=== PATIENT | female | born 1940 | race Caucasian/White ===

== ENCOUNTER 2017-01-04 15:04 | Inpatient (IN) ==
[2017-01-04] MEDS ORDERED: 0.9 % Sodium Chloride 1,000 ML IVC ONE (15:38)
--- NOTE | 2017-01-04 15:43 | Emergency Department Note ---
Disposition Clinical Impression: Hyponatremia, COPD exacerbation, At risk for fall due to comorbid condition Disposition: Admitted As Inpatient Condition: Fair Time of Disposition: 19:14 General Adult HPI - General Chief complaint: ED Fall Stated complaint: frequent fall, back pain Time Seen by Provider: 01/04/17 15:21 Source: patient, family Limitations: no limitations Nursing Notes Reviewed: Yes Vital Signs Reviewed: Yes - History of Present Illness HPI Narrative: Patient is a 68-year-old female recent history of lung cancer diagnosis unknown type. Biopsies taken a few weeks ago. Patient also has a history of COPD and hypertension. Pt not on anticoagulants. Patient's daughter has been concerned for recent falls on repeated occasions, worsening confusion times the past month. Patient complains of some breath increased sputum production and cough over the past 2 weeks. Patient is treated for bronchitis 2 weeks prior to symptoms improved but then worsened. Patient also compared complains of intermittent dysuria and burning with urination and hematuria. Pain Scale: 8 - Related Data Home Medications Medication Instructions Recorded Confirmed Albuterol Sulfate [Albuterol 2 puff IH Q4-6H PRN 06/20/15 12/31/16 Inhaler] Losartan [Cozaar] 25 mg PO DAILY 06/20/15 12/31/16 Ipratropium/Albuterol Neb [Duoneb] 3 ml IH Q6HR PRN 12/23/16 12/31/16 Allergies Allergy/AdvReac Type Severity Reaction Status Date / Time Amoxicillin Allergy Difficulty Verified 12/23/16 08:32 Swallowing All systems ED: reviewed and negative except as stated. Constitutional: Reports: weakness. Denies: fever, chills Eyes: Denies: vision change ENT ED: Reports: congestion Cardiovascular: Denies: chest pain, palpitations, dyspnea on exertion, orthopnea Respiratory: Reports: cough, dyspnea. Denies: wheezes Gastrointestinal: Denies: abdominal pain, nausea, vomiting, diarrhea Genitourinary: Reports: urgency, dysuria, hematuria Musculoskeletal: Reports: back pain. Denies: neck pain Integumentary: Reports: lesions. Denies: rash Neurological: Reports: confusion, other (Unsteady gait). Denies: headache Psychiatric: Denies: anxiety Hematological/Lymphatic: Denies: easy bleeding, lymphadenopathy Past Medical History - Past Medical History Attestation: Yes The following information was validated with the patient. Source: patient, nursing notes reviewed (Contrary to complaint of back pain and nursing's notes. After a thorough investigation patient's head neck thoracic lumbar and sacrum patient has no reproducible tenderness to palpation patient does not complain of any back pain symptoms at this time) Medical history: Reports: cancer, COPD, hypertension Surgical history: Reports: cataract Psychiatric history: Reports: no psych history [employer] history: Reports: non-contributory - Social History Smoking Status: Current every day smoker Smokeless Tobacco Status: No Alcohol use: Reports: none Drug use: Reports: none Physical Exam Vital Signs Temperature 99.5 F 01/04/17 15:12 Pulse Rate 89 01/04/17 15:12 Respiratory Rate 18 01/04/17 15:12 Blood Pressure 192/60 01/04/17 15:12 O2 Sat by Pulse Oximetry 90 01/04/17 15:12 Temperature 99.5 F 01/04/17 15:17 Pulse Rate 88 01/04/17 16:14 Respiratory Rate 16 01/04/17 16:14 Blood Pressure 163/80 01/04/17 16:14 O2 Sat by Pulse Oximetry 99 01/04/17 16:14 Oxygen Delivery Oxygen Delivery Nasal Cannula -General Appearance: Patient is a 68-year-old female who is alert and oriented 3 GCS 15. Patient can sit up in the bed and in no acute distress. Patient has a periodic wet sounding cough -Neurological exam: Cranial nerves II-12 intact, no focal deficits observed, strength equal 5/5 bilaterally in upper and lower extremities, cerebellar motion test negative. Negative loss of sensation, relfexex 2/4 bilat - Head Head exam: atraumatic, normocephalic, normal inspection, no areas of tenderness to palpation anywhere patient's scalp. - Eye Eye exam: Present: normal appearance, PERRL, EOMI, negative for scleral icterus negative for conjunctival pallor - ENT ENT exam: normal exam, normal oropharynx, mucous membranes moist - Neck Neck exam: Present: normal inspection, full ROM, trachea midline, negative JVD - Chest Chest inspection: Present: Patient has bilateral equal rise and fall of chest wall. Non-tender to palpation. - Respiratory Respiratory exam: Bilateral rales Cardiovascular Cardiovascular exam: Present: regular rate, normal rhythm, normal heart sounds, without murmurs rubs or gallops. - Abdominal Exam Abdominal exam: Present: soft, nondistended, Non-Tender light and deep palpation in all quadrants. Bowel sounds normoactive throughout all 4 quadrants. Negative for hyper or hyperresonance. - Extremities Exam Extremities exam: Present: normal inspection, full ROM - Back Exam Back exam: Present: normal inspection, full ROM. Absent: tenderness, CVA tenderness (R), CVA tenderness (L) - Psychiatric Psychiatric exam: Present: normal affect, normal mood - Skin Skin exam: Present: warm, dry, intact, normal color - General Limitations: no limitations General appearance: alert, in no apparent distress Course - Reevaluation(s) Reevaluation #1: Consent patient's worsening cough, confusion and frequent falls secondary to instability on her feet patient symptoms are concerning for PE, sepsis secondary to pneumonia, UTI Time: 15:41 Reevaluation #2: elevated d-dimer, CTA chest ordered Time: 16:05 - Consultations Consultation #1: Dr. Frank the hospitalist has accepted pt for admission 1911hrs. Time: 19:12 Vital Signs Temperature 99.5 F 01/04/17 15:12 Pulse Rate 89 01/04/17 15:12 Respiratory Rate 18 01/04/17 15:12 Blood Pressure 192/60 01/04/17 15:12 O2 Sat by Pulse Oximetry 90 01/04/17 15:12 Temperature 97.4 F L 01/05/17 00:26 Pulse Rate 77 01/05/17 00:26 Respiratory Rate 16 01/05/17 00:26 Blood Pressure 148/66 01/05/17 00:26 O2 Sat by Pulse Oximetry 96 01/05/17 00:26 Oxygen Delivery Oxygen Delivery Nasal Cannula Medical Decision Making - Lab Data Lab results reviewed: Yes I reviewed the patient's lab results. Lab results narrative: Short CBC 01/04/17 Range/Units 16:05 WBC 11.9 H (4.3-11.1) K/mcL Hgb 11.5 (11.5-15.4) g/dL Hct 33.8 L (35.3-44.9) % Plt Count 306 (140-400) K/mcL Neutrophils # 10.2 H (1.6-8.9) K/mcL BMP 01/04/17 Range/Units 16:05 Sodium 133 L (136-145) mEq/L Potassium 3.5 (3.5-4.5) mEq/L Chloride 94 L (98-109) mEq/L Carbon Dioxide 26 (19-29) mEq/L BUN 10 (7-20) mg/dL Creatinine 0.67 (0.57-1.11) mg/dL Glucose 112 H (70-99) mg/dL Calcium 9.3 (8.6-10.8) mg/dL Cardiac Enzymes 01/04/17 Range/Units 16:05 Troponin I 0.01 (0-0.03) ng/mL Urine 01/04/17 Range/Units 18:00 Urine Color Yellow (Yellow) Urine Clarity Clear (Clear) Urine pH 6.5 (5.0-8.0) pH Units Ur Specific [place] 1.025 (1.010-1.025) Urine Protein Negative (Neg-Trace) mg/dL Urine Glucose (UA) Normal (Normal) mg/dL Result diagrams: 01/04/17 16:05 01/04/17 16:05 Lab Results 01/04/17 01/04/17 01/04/17 Range/Units 16:05 16:05 16:05 WBC 11.9 H (4.3-11.1) K/mcL RBC 4.06 (3.82-4.97) M/mcL Hgb 11.5 (11.5-15.4) g/dL Hct 33.8 L (35.3-44.9) % MCV 83.3 (83.0-100.0) fL MCH 28.3 (28.0-33.3) pg MCHC 34.0 (31.6-35.5) g/dL RDW 12.8 (11.5-14.5) % Plt Count 306 (140-400) K/mcL MPV 9.7 (9.4-12.4) fL Immature Gran % 0.6 (0-4) % Seg Neutrophils % 85.9 % Lymphocytes % 7.5 % Monocytes % 4.9 % Eosinophils % 0.8 % Basophils % 0.3 % Neutrophils # 10.2 H (1.6-8.9) K/mcL Lymphocytes # 0.9 (0.6-4.6) K/mcL Monocytes # 0.6 (0.0-1.3) K/mcL Eosinophils # 0.1 (0.0-0.6) K/mcL Basophils # 0.0 (0.0-0.2) K/mcL D-Dimer (0-500) ng/mLFEU Sodium 133 L (136-145) mEq/L Potassium 3.5 (3.5-4.5) mEq/L Chloride 94 L (98-109) mEq/L Carbon Dioxide 26 (19-29) mEq/L BUN 10 (7-20) mg/dL Creatinine 0.67 (0.57-1.11) mg/dL Est GFR ( Amer) > 60 (> 60) Est GFR (Non-Af Amer) > 60 (> 60) BUN/Creatinine Ratio 15 (6-26) Glucose 112 H (70-99) mg/dL POC Glucose (58-89) Calculated Osmolality 276 L (280-300) Lactic Acid 0.9 (0.5-2.2) mmol/L Calcium 9.3 (8.6-10.8) mg/dL Troponin I (0-0.03) ng/mL B-Natriuretic Peptide (0-100) pg/mL Urine Color (Yellow) Urine Clarity (Clear) Urine pH (5.0-8.0) pH Units Ur Specific [place] (1.010-1.025) Urine Protein (Neg-Trace) mg/dL Urine Glucose (UA) (Normal) mg/dL Urine Ketones (Negative) mg/dL Urine Blood (Negative) Urine Nitrite (Negative) Urine Bilirubin (Negative) Urine Urobilinogen (Normal) mg/dL Ur Leukocyte Esterase (Negative) Urine Microscopic RBC (0-3) per hpf Urine Microscopic WBC (0-3) per hpf Ur Squamous Epith Cells (None-Few) per lpf Urine Bacteria (None-Few) per hpf Hyaline Casts (None-Few) per lpf Ur Culture Indicated? (NO) 01/04/17 01/04/17 01/04/17 Range/Units 16:05 16:05 16:05 WBC (4.3-11.1) K/mcL RBC (3.82-4.97) M/mcL Hgb (11.5-15.4) g/dL Hct (35.3-44.9) % MCV (83.0-100.0) fL MCH (28.0-33.3) pg MCHC (31.6-35.5) g/dL RDW (11.5-14.5) % Plt Count (140-400) K/mcL MPV (9.4-12.4) fL Immature Gran % (0-4) % Seg Neutrophils % % Lymphocytes % % Monocytes % % Eosinophils % % Basophils % % Neutrophils # (1.6-8.9) K/mcL Lymphocytes # (0.6-4.6) K/mcL Monocytes # (0.0-1.3) K/mcL Eosinophils # (0.0-0.6) K/mcL Basophils # (0.0-0.2) K/mcL D-Dimer 1503 H (0-500) ng/mLFEU Sodium (136-145) mEq/L Potassium (3.5-4.5) mEq/L Chloride (98-109) mEq/L Carbon Dioxide (19-29) mEq/L BUN (7-20) mg/dL Creatinine (0.57-1.11) mg/dL Est GFR ( Amer) (> 60) Est GFR (Non-Af Amer) (> 60) BUN/Creatinine Ratio (6-26) Glucose (70-99) mg/dL POC Glucose (58-89) Calculated Osmolality (280-300) Lactic Acid (0.5-2.2) mmol/L Calcium (8.6-10.8) mg/dL Troponin I 0.01 (0-0.03) ng/mL B-Natriuretic Peptide 51 (0-100) pg/mL Urine Color (Yellow) Urine Clarity (Clear) Urine pH (5.0-8.0) pH Units Ur Specific [place] (1.010-1.025) Urine Protein (Neg-Trace) mg/dL Urine Glucose (UA) (Normal) mg/dL Urine Ketones (Negative) mg/dL Urine Blood (Negative) Urine Nitrite (Negative) Urine Bilirubin (Negative) Urine Urobilinogen (Normal) mg/dL Ur Leukocyte Esterase (Negative) Urine Microscopic RBC (0-3) per hpf Urine Microscopic WBC (0-3) per hpf Ur Squamous Epith Cells (None-Few) per lpf Urine Bacteria (None-Few) per hpf Hyaline Casts (None-Few) per lpf Ur Culture Indicated? (NO) 01/04/17 01/04/17 Range/Units 16:17 18:00 WBC (4.3-11.1) K/mcL RBC (3.82-4.97) M/mcL Hgb (11.5-15.4) g/dL Hct (35.3-44.9) % MCV (83.0-100.0) fL MCH (28.0-33.3) pg MCHC (31.6-35.5) g/dL RDW (11.5-14.5) % Plt Count (140-400) K/mcL MPV (9.4-12.4) fL Immature Gran % (0-4) % Seg Neutrophils % % Lymphocytes % % Monocytes % % Eosinophils % % Basophils % % Neutrophils # (1.6-8.9) K/mcL Lymphocytes # (0.6-4.6) K/mcL Monocytes # (0.0-1.3) K/mcL Eosinophils # (0.0-0.6) K/mcL Basophils # (0.0-0.2) K/mcL D-Dimer (0-500) ng/mLFEU Sodium (136-145) mEq/L Potassium (3.5-4.5) mEq/L Chloride (98-109) mEq/L Carbon Dioxide (19-29) mEq/L BUN (7-20) mg/dL Creatinine (0.57-1.11) mg/dL Est GFR ( Amer) (> 60) Est GFR (Non-Af Amer) (> 60) BUN/Creatinine Ratio (6-26) Glucose (70-99) mg/dL POC Glucose 124 H (58-89) Calculated Osmolality (280-300) Lactic Acid (0.5-2.2) mmol/L Calcium (8.6-10.8) mg/dL Troponin I (0-0.03) ng/mL B-Natriuretic Peptide (0-100) pg/mL Urine Color Yellow (Yellow) Urine Clarity Clear (Clear) Urine pH 6.5 (5.0-8.0) pH Units Ur Specific [place] 1.025 (1.010-1.025) Urine Protein Negative (Neg-Trace) mg/dL Urine Glucose (UA) Normal (Normal) mg/dL Urine Ketones 15 H (Negative) mg/dL Urine Blood Trace H (Negative) Urine Nitrite Negative (Negative) Urine Bilirubin Negative (Negative) Urine Urobilinogen Normal (Normal) mg/dL Ur Leukocyte Esterase Negative (Negative) Urine Microscopic RBC 0-3 (0-3) per hpf Urine Microscopic WBC 0-3 (0-3) per hpf Ur Squamous Epith Cells Few (None-Few) per lpf Urine Bacteria Few (None-Few) per hpf Hyaline Casts None Seen (None-Few) per lpf Ur Culture Indicated? NO (NO) - Radiology Data Radiology results reviewed: Yes I reviewed the patient's radiology results. Chest X-Ray 01/04/17 15:38 IMPRESSION: 1. Improved aeration of the right upper lobe with an unchanged right upper lobe pulmonary mass. D/ / Fan Garica MD / Fan Garcia MD Interpreting Provider: Fan Garcia MD Chest CTA 01/04/17 16:26 IMPRESSION: 1. No pulmonary embolism. 2. Significant increase in size of a right upper lobe mass, which now measures up to 7.0 cm in size, previously measuring up to 4.0 cm. This is consistent with progressive lung cancer. 3. Enlarging right hilar lymphadenopathy, which is most likely due to metastatic disease. 4. Nodules in the thyroid gland which measure up to 0.7 cm in size. These are considered benign and require no further imaging follow-up, as outlined below. RECOMMENDATIONS: Managing Incidental Thyroid Nodule Detected at CT or MRI or US 1. Further evaluation by thyroid Ultrasound recommended for these incidental nodules: Patient Age 18 years or less - Any nodule. Patient Age 19-34 years old - Nodule 1 cm in size or greater Patient Age 35 years or more - Nodule 1.5 cm in size or greater 2. Follow up thyroid ultrasound also recommend in these scenarios -Solitary nodule with high risk imaging features (locally invasive nodule or suspicious lymph nodes) -Any nodule in a heterogeneous enlarged thyroid gland 3. NO further imaging is recommended in the following scenarios -No f/u imaging is recommended for ITNs not meeting the above criteria. -No US or f/u recommended for ITNs without high risk features in pts. with limited life expectancy or significant co-morbidities, unless clinically warranted. Note: These recommendations do not apply to pts. w/ increased risk for thyroid cancer or pts. with symptomatic thyroid disease. Recommendations for f/u of Incidental Thyroid Nodules (ITN) found on CT, MR, NM and Extrathyroidal US are based upon the ACR white paper and Lopez 3-tiered system for managing ITNs: J Am Izzy Radiol. 2015 Oct;12(2): 143-50 D/ / Mohan Hair MD / Mohan Hair MD Interpreting Provider: Mohan Hair MD Head CT 01/04/17 16:29 IMPRESSION: No acute intracranial abnormality. Stable exam with findings compatible with age related atrophy and likely chronic small vessel ischemic change. D/ / Gonzalez Romo MD / Gonzalez Romo MD Interpreting Provider: Gonzalez Romo MD - EKG Data EKG #1 EKG attestation: Yes I reviewed and interpreted this EKG. EKG results narrative: EKG taken 01/04/2017 1620 hrs. shows sinus rhythm at a rate of 80 beats minute with no acute ST elevations or depressions any leads. No QRS widening or QT prolongation. Previous EKG for comparison dated 11/30/2016 shows a sinus rhythm at 82 bpm. His MR to today's EKG with no signs of ischemia.
[2017-01-04 16:15] LABS: Basophils % 0.3 %; Eosinophils # 0.1 K/mcL (0.0-0.6); Eosinophils % 0.8 %; Hematocrit 33.8 % (35.3-44.9); Hemoglobin 11.5 g/dL (11.5-15.4); Immature Granulocytes % 0.6 % (0-4); Lymphocytes # 0.9 K/mcL (0.6-4.6); Lymphocytes % 7.5 %; Mean Corpuscular Hemoglobin 28.3 pg (28.0-33.3); Mean Corpuscular Volume 83.3 fL (83.0-100.0); Mean Platelet Volume 9.7 fL (9.4-12.4); Monocytes # 0.6 K/mcL (0.0-1.3); Monocytes % 4.9 %; Neutrophils # 10.2 K/mcL (1.6-8.9); Platelet Count 306 K/mcL (140-400); Red Blood Count 4.06 M/mcL (3.82-4.97); Red Cell Distribution Width 12.8 % (11.5-14.5); Segmented Neutrophils % 85.9 %
[2017-01-04] MEDS ORDERED: Ipratropium/Albuterol Neb 3 ML IH ONE (16:25)
[2017-01-04 16:27] LABS: BUN/Creatinine Ratio 15 (6-26); Blood Urea Nitrogen 10 mg/dL (7-20); Calcium 9.3 mg/dL (8.6-10.8); Carbon Dioxide 26 mEq/L (19-29); Chloride 94 mEq/L (98-109); Glucose 112 mg/dL (70-99); Osmolality,Calculated 276 (280-300); Potassium 3.5 mEq/L (3.5-4.5); Sodium 133 mEq/L (136-145); eGFR For African Americans > 60 (> 60); eGFR For Non-African Americans > 60 (> 60)
[2017-01-04] MEDS ORDERED: methylPREDNISolone 125 MG/2 ML VIAL IVP ONE (16:29)
--- NOTE | 2017-01-04 16:55 | Emergency Department Note ---
START Narrative - START START: I personally interviewed and examined this patient and my medical decision- making was reviewed with the ED Resident Physicians, Drs. Blanco and Francesca. I agree with the documented findings, disposition and treatment plan as described except to the extent set forth below. Patient is a 76-year-old white female with history of COPD, smokes daily, who also has a history of right breast cancer that has metastasized to the lung. Patient is being managed by oncology right now and currently stays with her daughter who is helping with her care. Daughter brought her in tonight because over the past 2 months patient has been having gradually worsening generalized weakness. Currently she indurates with a walker at home, but over the past week daughter states that she is even having difficulty with that due to generalized weakness patient reports that her legs just feel like they give out from under her. Patient denies any symptoms which caused the fall such as lightheadedness dizziness nausea and she has not had any episodes of syncope. Patient states she is just extremely tired and fatigued and has trouble walking even short distances with her walker at home. Patient has fallen multiple times , most recently was this morning while she was going to the bathroom. Patient states she hit her head this morning and the daughter was reporting some complaints of back pain throughout the week following some prior falls. Patient is not on any blood thinners at this time had no loss of consciousness related to the head injury in the last 24 hours has had no nausea or vomiting. Patient denies any headaches, no focal neurologic symptoms no true changes in her mental status although daughter feels she just seems very tired and weak. Patient denies any chest pain but is complaining of some mild shortness of breath and has his inspir/exp wheezing bilaterally. Patient with no signs of respiratory distress at this time is speaking in full sentences. We will obtain a thorough evaluation including EKG, lab evaluation looking for any signs of underlying infection contributing to her weakness as well as CT to rule out PE or infection and CT of the brain to rule out any injury related to the fall. Patient's resting comfortable he at bedside receiving albuterol Atrovent nebs at this time for her wheezing daughter at bedside. CT scanning negative for intracranial injury or bleed, CT chest negative for pneumonia but does show an increase in size of her mass from prior imaging. We will admit the patient for generalized weakness, frequent falls, acute exacerbation of COPD, inability to ambulate at home.
[2017-01-04 18:12] LABS: Bilirubin,Urine Negative (Negative); Blood,Urine Trace (Negative); Clarity,Urine Clear (Clear); Color,Urine Yellow (Yellow); Glucose,Urine (UA) Normal (Normal); Ketones,Urine 15 mg/dL (Negative); Leukocyte Esterase,Urine Negative (Negative); Nitrite,Urine Negative (Negative); PH,Urine 6.5 pH Units (5.0-8.0); Protein,Urine Negative (Neg-Trace); Specific Gravity,Urine 1.025 (1.010-1.025); Urobilinogen,Urine Normal (Normal)
[2017-01-04 18:15] LABS: Hyaline Casts,Urine None Seen per lpf (None-Few); RBC,Urine 0-3 per hpf (0-3); WBC,Urine 0-3 per hpf (0-3)
[2017-01-04 18:24] LABS: Squamous Epithelial Cell,Urine Few per lpf (None-Few)
[2017-01-04 18:25] LABS: Bacteria,Urine Few per hpf (None-Few)
[2017-01-04] MEDS ORDERED: 0.9 % Sodium Chloride 500 ML IVC SCH (20:00)
--- NOTE | 2017-01-04 20:34 | Internal Med History&Physical ---
Date of Encounter: 01/04/17 Time of Encounter: 20:28 Assessment and Plan (1) COPD (chronic obstructive pulmonary disease) Current visit: Yes Status: Acute Slight decrease in air entry on exam. I do not think the patient needs antibiotics at this point. Continue [id number] nebulizer treatment Qualifiers: Qualified Code(s): J44.9 - Chronic obstructive pulmonary disease, unspecified (2) Back pain Current visit: Yes Status: Acute From recurrent falls. She is able to raise both lower extremities against gravity. X-ray of the lumbar spine will be performed. Physical therapy to see the patient considers skilled care. Still having severe back pain will get the MRI ruled out any metastatic disease Qualifiers: Qualified Code(s): M54.9 - Dorsalgia, unspecified (3) Recurrent falls Current visit: Yes Status: Acute CT head unremarkable. No clear infectious etiology. Physical therapy to see the patient. (4) Hyponatremia Current visit: Yes Status: Acute Mild hyponatremia gentle hydration. urine sodium and osmolality Internal Medicine - H&P: HPI Chief complaint: recurrent falls History of present illness: Ms. Aldridge is a 76 year old female with past medical history of COPD on nighttime oxygen but has been using oxygen more frequently recently, recently diagnosed lung cancer presents to the emergency room today with a main complain of recurrent falls. The patient mentioned that she had fallen multiple times this month that are too numerous to count. She falls because of gate unsteadiness. She still able to raise both lower extremities against gravity. Family also noted intermittent confusion. She has back pain from recurrent falls. She ambulates with a walker. She denies loss of consciousness prior to these falls. She does not take any opiate medication. She denies any recent fevers chills. no increase in cough sputum production. She was recently treated with doxycycline for acute bronchitis and completed about a 5 day course. Patient has not been eating or drinking well. She continues to smoke 3 packs of cigarettes daily Past Med Surg Social Fam HX - Past Medical History Medical history: cancer, COPD, hypertension Psychiatric history: no psych history - Past Surgical History Surgical History: cataract - Social History Smoking Status: Current every day smoker Smokeless Tobacco Status: No Alcohol use: none Drug use: none Internal Medicine - H&P: Meds Albuterol Sulfate [Albuterol Inhaler] 2 puff IH Q4-6H PRN 06/20/15 [History] Losartan [Cozaar] 25 mg PO DAILY 06/20/15 [History] Ipratropium/Albuterol Neb [Duoneb] 3 ml IH Q6HR PRN 12/23/16 [History] Allergies Amoxicillin Allergy (Verified 12/23/16 08:32) Difficulty Swallowing RASH All Systems PM: A 10-system review of systems was performed and is negative for pertinent findings except as documented above in the HPI. Review of systems: 10 point review of systems is negative except for HPI - Constitutional Vitals: Temp Pulse Resp BP Pulse Ox 99.4 F 88 18 182/86 97 01/04/17 16:55 01/04/17 18:37 01/04/17 19:33 01/04/17 19:33 01/04/17 18:37 Exam: Gen.: patient is alert oriented times 3 not in distress. Cardiac: normal S1 S2 no additional sounds or murmurs chest: slightly diminished air entry. no active wheezing. No crackles abdomen: soft nontender nondistended normal bowel sounds neuro: no focal deficit Internal Med - H&P Results - Labs CBC & Chem 7: 01/04/17 16:05 01/04/17 16:05
[2017-01-04] MEDS ORDERED: *HR* Morphine 2 MG/ML SYRINGE IVP PRN (20:38)
[2017-01-05] MEDS: Ipratropium/Albuterol Neb 3 ML IH SCH ×4 (03:40→23:14)
[2017-01-05 05:09] LABS: Basophils % 0.2 %; Hematocrit 33.3 % (35.3-44.9); Hemoglobin 11.2 g/dL (11.5-15.4); Immature Granulocytes % 0.5 % (0-4); Lymphocytes # 0.5 K/mcL (0.6-4.6); Lymphocytes % 8.9 %; Mean Corpuscular HGB Conc 33.6 g/dL (31.6-35.5); Mean Corpuscular Hemoglobin 27.9 pg (28.0-33.3); Mean Platelet Volume 9.5 fL (9.4-12.4); Monocytes # 0.2 K/mcL (0.0-1.3); Neutrophils # 5.2 K/mcL (1.6-8.9); Platelet Count 305 K/mcL (140-400); Red Blood Count 4.01 M/mcL (3.82-4.97); Segmented Neutrophils % 87.4 %
[2017-01-05] MEDS: *HR* Heparin 5,000 UNIT/ML VIAL SQ SCH ×2 (05:22→18:04)
[2017-01-05 07:27] LABS: BUN/Creatinine Ratio 20 (6-26); Blood Urea Nitrogen 13 mg/dL (7-20); Calcium 9.3 mg/dL (8.6-10.8); Carbon Dioxide 25 mEq/L (19-29); Chloride 102 mEq/L (98-109); Glucose 192 mg/dL (70-99); Magnesium 1.8 mg/dL (1.6-2.6); Osmolality,Calculated 289 (280-300); Potassium 3.4 mEq/L (3.5-4.5); Sodium 137 mEq/L (136-145); eGFR For African Americans > 60 (> 60); eGFR For Non-African Americans > 60 (> 60)
[2017-01-05] MEDS ORDERED: Famotidine 20 MG/2 ML VIAL IVP SCH (09:00)
--- NOTE | 2017-01-05 09:05 | Electrocardiograph Report ---
[place] [id number] Test Date: 2017-01-04 Pat Name: Kiera Aldridge Department: 102 Room: [facility] Gender: F Protozoologist: Janice : 1940 Requested By: Javon Ma Order Number: [id number] Reading MD: Lionel Thurston MD Measurements Intervals [place] Rate: 88 P: 67 TX: 133 QRS: 57 QRSD: 93 T: 66 QT: 353 QTc: 398 Interpretive Statements SINUS RHYTHM BASELINE ARTIFACT Electronically Signed On 01-05-2017 9:04:30 EDT by Lionel Thurston MD
[2017-01-05] MEDS: Nicotine 21 MG PATCH.TD24 TD SCH (09:51)
--- NOTE | 2017-01-05 10:04 | Internal Med Progress Note ---
<Jolynn Bruno - Last Filed: 01/05/17 12:41> Date of Encounter: 01/05/17 Time of Encounter: 10:02 - Assessment and plan (1) Recurrent falls Current Visit: Yes Status: Acute Assessment and plan: Patient with recurrent falls that started an unknown time ago, they were not present at this frequency 6 months ago Patient currently falling multiple times a day every day PT/OT consult, appreciate recommendations --Patient has already had an outpatient appointment with her PCP and had planned to have an appointment to discuss home health and getting life alert (2) Back pain Current Visit: Yes Status: Acute Assessment and plan: Lumbar spine x-ray showed acute/subacute mild compression deformity of the superior endplate L1 Supportive care: pain management Qualifiers: Back pain location: low back pain Chronicity: acute Back pain laterality : midline Sciatica presence: without sciatica Qualified Code(s): M54.5 - Low back pain (3) Nicotine dependence Current Visit: Yes Status: Acute Assessment and plan: Patient and patient's daughter requesting nicotine patch. Review of records show Dr. Bates's note stating patient is allergic to the nicotine patch. Patient given nicotine patch at this time with nurse made aware of potential allergy. Patient will be watched closely. Qualifiers: Nicotine product type: cigarettes Substance use status: uncomplicated Qualified Code(s): F17.210 - Nicotine dependence, cigarettes, uncomplicated (4) Lung cancer Current Visit: Yes Status: Acute Assessment and plan: She is a patient of Dr. Bates Keep follow-up appointment January 14 at 9 AM Qualifiers: Laterality: right Lung location: upper lobe of lung Qualified Code(s): C34.11 - Malignant neoplasm of upper lobe, right bronchus or lung (5) COPD (chronic obstructive pulmonary disease) Current Visit: Yes Status: Chronic Assessment and plan: Patient admits to noncompliance with daily inhaler use. Duonebs as needed, albuterol as needed Qualifiers: COPD type: unspecified COPD Qualified Code(s): J44.9 - Chronic obstructive pulmonary disease, unspecified (6) HTN (hypertension) Current Visit: Yes Status: Chronic Assessment and plan: continue home medication Qualifiers: Hypertension type: essential hypertension Qualified Code(s): I10 - Essential (primary) hypertension - Subjective Interval history: Patient seen and examined. She states she has had multiple falls recently. She is unsure of how many follicles are when they started. She states she has fallen 6 times in the previous 2 days. When she falls she states she can only get up if there is something for her to grab onto an pull-up with. She had seen her primary care physician and had a meeting set up to talk about home health and possibly getting life alert. - Constitutional Vitals: Temp Pulse Resp BP Pulse Ox 97.5 F L 75 17 115/63 91 01/05/17 05:13 01/05/17 07:00 01/05/17 07:00 01/05/17 07:00 01/05/17 07:00 General appearance: Present: no acute distress, answers questions appropriately - Head Head exam: Present: atraumatic, normocephalic - Eye Eye exam: Present: PERRL, conjuntiva pink, sclera anicteric Pupils: Present: PERRL - ENT ENT exam: Present: mucous membranes moist - Neck Neck exam general surgery: Present: supple - Respiratory Respiratory exam: Present: rales (bibasilar) - Cardiovascular Cardiovascular exam: Present: RRR, +S1, +S2 - GI/Abdominal GI/Abdominal exam: Present: normal bowel sounds, soft. Absent: tenderness - Extremities Exam Extremities exam: Present: warm. Absent: pedal edema, tenderness - Neurological Exam Neurological exam: Present: alert, CN II-XII intact, oriented X3, no focal deficits. Absent: pronater drift, facial droop, speech deficit - Skin Skin exam: Present: dry, intact, warm Internal Medicine: Result - Labs CBC & Chem 7: 01/05/17 04:42 01/05/17 06:57 Labs: Short CBC 01/05/17 Range/Units 04:42 WBC 6.0 (4.3-11.1) K/mcL Hgb 11.2 L (11.5-15.4) g/dL Hct 33.3 L (35.3-44.9) % Plt Count 305 (140-400) K/mcL Neutrophils # 5.2 (1.6-8.9) K/mcL BMP 01/05/17 06:57 Sodium 137 Potassium 3.4 L Chloride 102 Carbon Dioxide 25 BUN 13 Creatinine 0.66 Glucose 192 H Calcium 9.3 - ABG Interpretation ABG results: PT/INR, D-dimer D-Dimer 1503 ng/mLFEU (0-500) H 01/04/17 16:05 - Impressions Impressions Lumbar Spine X-Ray 01/04/17 19:54 IMPRESSION: Acute/subacute mild compression deformity of the superior endplate of L1 which is new compared with prior CT dated December 04, 2015. Osteopenia. D/ / Kevin Vaughn MD / Kevin Vaughn MD Interpreting Provider: Kevin Vaughn MD - VTE Documentation of Mechanical Device: Intermittent pneumatic compression device Consult Discharge Plan - Plan Referrals: Riddhi Sosa, MICK [Primary Care Provider] - <Oscar Marcial - Last Filed: 01/05/17 18:42> Date of Encounter: 01/05/17 - Constitutional Vitals: Temp Pulse Resp BP Pulse Ox 97.6 F 80 20 132/60 96 01/05/17 16:12 01/05/17 16:12 01/05/17 16:12 01/05/17 16:12 01/05/17 16:12 Internal Medicine: Result - Labs CBC & Chem 7: 01/05/17 04:42 01/05/17 06:57 Labs: Short CBC 01/05/17 Range/Units 04:42 WBC 6.0 (4.3-11.1) K/mcL Hgb 11.2 L (11.5-15.4) g/dL Hct 33.3 L (35.3-44.9) % Plt Count 305 (140-400) K/mcL Neutrophils # 5.2 (1.6-8.9) K/mcL BMP 01/05/17 06:57 Sodium 137 Potassium 3.4 L Chloride 102 Carbon Dioxide 25 BUN 13 Creatinine 0.66 Glucose 192 H Calcium 9.3 - ABG Interpretation ABG results: PT/INR, D-dimer D-Dimer 1503 ng/mLFEU (0-500) H 01/04/17 16:05 - Impressions Impressions Lumbar Spine X-Ray 01/04/17 19:54 IMPRESSION: Acute/subacute mild compression deformity of the superior endplate of L1 which is new compared with prior CT dated December 04, 2015. Osteopenia. D/ / Kevin Vaughn MD / Kevin Vaughn MD Interpreting Provider: Kevin Vaughn MD - Attending Attestation I examined this patient and my medical decision-making was reviewed with the HIDE DYER/PA/Advanced Practice Nurse/Resident Physician. I agree with the documented findings, disposition and treatment plan as described except to the extent set forth below.
[2017-01-05] MEDS ORDERED: Acetaminophen 325 MG TABLET PO PRN (10:14)
[2017-01-05] MEDS ORDERED: Naloxone 0.4 MG/ML INJ IVP PRN (10:14)
[2017-01-05] MEDS ORDERED: *HR* Morphine 2 MG/ML SYRINGE IVP PRN (10:16)
[2017-01-05] MEDS ORDERED: Levofloxacin 750 MG/150 ML 750 MG/150 ML BAG IVPB SCH (15:00)
--- NOTE | 2017-01-05 15:08 | Palliative - Consult Note ---
<Kuldeep Juarez - Last Filed: 01/05/17 16:12> Date of Encounter: 01/05/17 Time of Encounter: 15:03 - Assessment and Plan (1) Goals of care, counseling/discussion Current Visit: Yes Status: Acute Assessment and plan: Family present at bedside. Advance directives in place prior to arrival. Code status DNR CC-A/DNI. They are currently awaiting evaluation and imput from Oncology prior to deciding other goals of care. They would like for treatment/re -hab/and return to independent life but understand that they need to have evaluation by Oncology for further prognosis and discussion of possible options. Great family support system: Daughters: in Medical Records ext [phone] and [place] (2) Lung cancer Current Visit: Yes Status: Acute Assessment and plan: Previous history of breast cancer in 2005. Pt with recently diagnosed RUL mass found to be with associated hilar lymphadenopathy. Oncology consult pending. Qualifiers: Laterality: right Lung location: upper lobe of lung Qualified Code(s): C34.11 - Malignant neoplasm of upper lobe, right bronchus or lung Palliative-CN HPI - Data of Consult Consult date: 01/05/17 Requesting Physician: Oscar Marcial MD Primary Care Provider: Riddhi Sosa CNP - Consult Narrative Palliative Care/Comfort Measures: Palliative care History of present illness: Ms. Aldridge is a 76 year old female admitted for multiple falls and back pain. The patient has history of breast cancer s/p lumpectomy and axillary lymphnode dissection in December 2005. She did not take chemo; underwent treatment with anastrozole and radiation therapy to left breast. She was later found to have RUL mass with enlarged hilar lymphnodes that has significantly worsened upon imaging during this admission process. Currently complaining of mild back pain. CC: Oscar Marcial MD Past Med Surg Social Fam HX - Past Medical History Medical history: cancer, COPD, hypertension Psychiatric history: no psych history - Past Surgical History Surgical History: cataract - Social History Smoking Status: Current every day smoker Smokeless Tobacco Status: No Alcohol use: none Drug use: none Medications and Allergies Albuterol Sulfate [Albuterol Inhaler] 2 puff IH Q4-6H PRN 06/20/15 [History] Losartan [Cozaar] 25 mg PO DAILY 10/14/15 [History] Ipratropium/Albuterol Neb [Duoneb] 3 ml IH Q6HR PRN 12/23/16 [History] Budesonide/Formoterol 160/4.5 [Symbicort 160/4.5] 1 puff IH BID 01/05/17 [ History] Guaifenesin [Mucinex] 600 mg PO Q12H PRN 01/05/17 [History] Allergies Amoxicillin Allergy (Verified 12/23/16 08:32) Difficulty Swallowing RASH All systems: reviewed and no additional remarkable complaints except as stated - Constitutional Constitutional ROS PAL: frequent falls - Respiratory Respiratory: cough, dyspnea on exertion - Musculoskeletal Musculoskeletal ROS IM: back pain - Neurological Neurological ROS: memory loss Palliative Care-Exam - Constitutional Vitals: Temp Pulse Resp BP Pulse Ox 97.5 F L 75 17 115/63 91 01/05/17 05:13 01/05/17 11:38 01/05/17 11:38 01/05/17 11:38 01/05/17 11:38 - Head Head Exam: Present: atraumatic, normal inspection - Eye Eye exam: Absent: conjunctival injection, scleral icterus, sclera anicteric - ENT ENT exam: Present: mucous membranes moist - Neck Neck exam: Present: full ROM - Respiratory Respiratory exam: Absent: accessory muscle use, respiratory distress - Extremities Exam Extremities exam: Present: normal inspection. Absent: pedal edema - Neurological Exam Neurological exam: Present: alert. Absent: no focal deficits, facial droop - Expanded Neurological Exam Patient oriented to: Present: person, place, time Coma Scale Eye Opening: Spontaneous Coma Scale Motor Response: Obeys Commands Coma Scale Verbal Response: Oriented Coma Scale Total: 15 - Psychiatric Psychiatric exam: Present: normal affect, normal mood - Skin Skin exam: Present: dry, warm. Absent: erythema Internal Medicine - CN: Reslt - Labs CBC & Chem 7: 01/05/17 04:42 01/05/17 06:57 Labs: Short CBC 01/05/17 Range/Units 04:42 WBC 6.0 (4.3-11.1) K/mcL Hgb 11.2 L (11.5-15.4) g/dL Hct 33.3 L (35.3-44.9) % Plt Count 305 (140-400) K/mcL Neutrophils # 5.2 (1.6-8.9) K/mcL BMP 01/05/17 06:57 Sodium 137 Potassium 3.4 L Chloride 102 Carbon Dioxide 25 BUN 13 Creatinine 0.66 Glucose 192 H Calcium 9.3 - ABG Interpretation ABG results: PT/INR, D-dimer D-Dimer 1503 ng/mLFEU (0-500) H 01/04/17 16:05 - Impressions Impressions Lumbar Spine X-Ray 01/04/17 19:54 IMPRESSION: Acute/subacute mild compression deformity of the superior endplate of L1 which is new compared with prior CT dated December 04, 2015. Osteopenia. D/ / Kevin Vaughn MD / Kevin Vaughn MD Interpreting Provider: Kevin Vaughn MD Consult Discharge Plan - Plan Referrals: Riddhi Sosa CNP [Primary Care Provider] - Palliative Quality Palliative Quality: Screen for Code Status: Yes, Screen for Goals of Care: Yes, Screen for Pain: Yes, If Pain Regimen Started, Initiate Bowel Regimen: Yes, Screen for Nausea/Vomitting: Yes Code Status: 01/04/17 19:55 Resuscitation Status: Active [RES] Routine Comment: Resuscitation Status: [id number] <JuanLucio - Last Filed: 01/05/17 16:22> Date of Encounter: 01/05/17 Palliative-CN HPI - Data of Consult Requesting Physician: Oscar Marcial MD Primary Care Provider: Riddhi Sosa CNP - Consult Narrative History of present illness: Ms. Aldridge is a 76 year old female CC: Oscar Marcial MD Palliative Care-Exam - Constitutional Vitals: Temp Pulse Resp BP Pulse Ox 97.6 F 80 20 132/60 96 01/05/17 16:12 01/05/17 16:12 01/05/17 16:12 01/05/17 16:12 01/05/17 16:12 Internal Medicine - CN: Reslt - Labs CBC & Chem 7: 01/05/17 04:42 01/05/17 06:57 Labs: Short CBC 01/05/17 Range/Units 04:42 WBC 6.0 (4.3-11.1) K/mcL Hgb 11.2 L (11.5-15.4) g/dL Hct 33.3 L (35.3-44.9) % Plt Count 305 (140-400) K/mcL Neutrophils # 5.2 (1.6-8.9) K/mcL BMP 01/05/17 06:57 Sodium 137 Potassium 3.4 L Chloride 102 Carbon Dioxide 25 BUN 13 Creatinine 0.66 Glucose 192 H Calcium 9.3 - ABG Interpretation ABG results: PT/INR, D-dimer D-Dimer 1503 ng/mLFEU (0-500) H 01/04/17 16:05 - Impressions Impressions Lumbar Spine X-Ray 01/04/17 19:54 IMPRESSION: Acute/subacute mild compression deformity of the superior endplate of L1 which is new compared with prior CT dated December 04, 2015. Osteopenia. D/ / Kevin Vaughn MD / Kevin Vaughn MD Interpreting Provider: Kevin Vaughn MD - Attending Attestation I examined this patient and my medical decision-making was reviewed with the Resident Physician. I agree with the documented findings, disposition and treatment plan as described except to the extent set forth below. Palliative Quality Code Status: 01/04/17 19:55 Resuscitation Status: Active [RES] Routine Comment: Resuscitation Status: [id number]
[2017-01-05] MEDS ORDERED: Potassium Chloride Elixir 20 MEQ/15 ML UDC PO ONE (15:33)
--- NOTE | 2017-01-05 15:58 | Oncology Inp Consult Note ---
Date of Encounter: 01/05/17 Time of Encounter: 15:50 - Data of Consult Patient: known to practice within the last 3 years Consult date: 01/05/17 Requesting Physician: sOcar Marcial MD Primary Care Provider: Riddhi Sosa CNP - Consult Narrative Reason for consult: Lung Cancer History of present illness: Ms. Aldridge is a 76 year old female with a significant smoking history and a past medical history significant for stage II ER/ME+ve Her 2 neuy negative T1 N1 M0 left breast cancer status post lumpectomy and axillary lymph node dissection in December 2005 followed by radiation to the left breast and 5 years of anastrozole therapy. She did not undergo adjuvant chemotherapy. She had presented to the emergency room earlier on this year on account of shortness of breath and a CT scan obtained has reveals a 2.8 x 4.2 x 3.2 cm mass in the right upper lobe of the lung with enlarged right hilar lymphadenopathy and a 1.2 cm left kidney exophytic mass. Past Med Surg Social Fam HX - Past Medical History Medical history: cancer, COPD, hypertension Psychiatric history: no psych history - Past Surgical History Surgical History: cataract - Social History Smoking Status: Current every day smoker Smokeless Tobacco Status: No Alcohol use: none Drug use: none Medications and Allergies Albuterol Sulfate [Albuterol Inhaler] 2 puff IH Q4-6H PRN 06/20/15 [History] Losartan [Cozaar] 25 mg PO DAILY 06/20/15 [History] Ipratropium/Albuterol Neb [Duoneb] 3 ml IH Q6HR PRN 12/23/16 [History] Budesonide/Formoterol 160/4.5 [Symbicort 160/4.5] 1 puff IH BID 01/05/17 [ History] Guaifenesin [Mucinex] 600 mg PO Q12H PRN 01/05/17 [History] Allergies Amoxicillin Allergy (Verified 12/23/16 08:32) Difficulty Swallowing RASH Oncology - Exam - Constitutional Vitals: Temp Pulse Resp BP Pulse Ox 97.5 F L 75 17 115/63 91 01/05/17 05:13 01/05/17 11:38 01/05/17 11:38 01/05/17 11:38 01/05/17 11:38 Oncology - Results - Labs Labs: Short CBC 01/05/17 Range/Units 04:42 WBC 6.0 (4.3-11.1) K/mcL Hgb 11.2 L (11.5-15.4) g/dL Hct 33.3 L (35.3-44.9) % Plt Count 305 (140-400) K/mcL Neutrophils # 5.2 (1.6-8.9) K/mcL BMP 01/05/17 06:57 Sodium 137 Potassium 3.4 L Chloride 102 Carbon Dioxide 25 BUN 13 Creatinine 0.66 Glucose 192 H Calcium 9.3 Consult Discharge Plan - Plan Referrals: Riddhi Sosa, DRY HOUSE ATTENDANT [Primary Care Provider] -
[2017-01-05] MEDS: levoFLOXacin 500 MG TABLET PO SCH (18:03)
[2017-01-05] MEDS: Sennosides/Docusate Sodium TABLET PO SCH (20:02)
[2017-01-06 04:25] LABS: Basophils % 0.2 %; Eosinophils # 0.1 K/mcL (0.0-0.6); Hematocrit 33.3 % (35.3-44.9); Hemoglobin 11.1 g/dL (11.5-15.4); Immature Granulocytes % 0.4 % (0-4); Lymphocytes # 1.7 K/mcL (0.6-4.6); Mean Corpuscular HGB Conc 33.3 g/dL (31.6-35.5); Mean Corpuscular Hemoglobin 27.8 pg (28.0-33.3); Mean Corpuscular Volume 83.5 fL (83.0-100.0); Mean Platelet Volume 9.7 fL (9.4-12.4); Monocytes # 0.8 K/mcL (0.0-1.3); Platelet Count 325 K/mcL (140-400); Red Blood Count 3.99 M/mcL (3.82-4.97); Red Cell Distribution Width 12.9 % (11.5-14.5); Segmented Neutrophils % 76.4 %
[2017-01-06 04:43] LABS: BUN/Creatinine Ratio 18 (6-26); Blood Urea Nitrogen 13 mg/dL (7-20); Calcium 8.9 mg/dL (8.6-10.8); Carbon Dioxide 26 mEq/L (19-29); Chloride 100 mEq/L (98-109); Glucose 117 mg/dL (70-99); Osmolality,Calculated 281 (280-300); Potassium 3.8 mEq/L (3.5-4.5); Sodium 135 mEq/L (136-145); eGFR For African Americans > 60 (> 60); eGFR For Non-African Americans > 60 (> 60)
[2017-01-06 04:45] LABS: Neutrophils # 8.6 K/mcL (1.6-8.9)
[2017-01-06] MEDS: Ipratropium/Albuterol Neb 3 ML IH SCH ×2 (04:55→11:05)
[2017-01-06] MEDS: *HR* Heparin 5,000 UNIT/ML VIAL SQ SCH ×2 (06:14→16:51)
--- NOTE | 2017-01-06 08:24 | Oncology Inp Consult Note ---
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 lymphangitic carcinomatosis/ initiate essential changes, or distant metastatic disease not ruled out as patient is unable to obtain PET imaging. Can obtain a CT scan of the abdomen with contrast to rule out adrenal/liver metastatic disease and stage IV disease. The treatment becomes more palliative at this point as she will be unable to tolerate concurrent chemoradiation therapy due to her baseline performance status which has declined. She will need placement due to her safety issues and falls at home Discussed the possibility of rehabilitation, but her strength may not improve with her underlying diagnosis for which she may not tolerate a definitive treatment. Radiation alone may also be palliative, she does not have any pain symptoms or obstructive changes at this time, and does not provide long lasting response. Patient wanted to try some form of treatment, as she did very well with breast cancer diagnosis in the past, and receive radiation and chemotherapy then. I discussed outcome and toxicities involved with concurrent radiation and chemotherapy treatments for lung cancer. She is currently needing help with ADLs from family. PAtient is declining hospice stating that it is for terminal diagnosis and she is not there yet. Intracranial mets not r/o she is unable to take MRI. Plan of care dicussed with patient in detail Qualifiers: Laterality: right Lung location: upper lobe of lung Qualified Code(s): C34.11 - Malignant neoplasm of upper lobe, right bronchus or lung - Data of Consult Requesting Physician: Oscar Marcial MD Primary Care Provider: Riddhi Sosa CNP - Consult Narrative Reason for consult: lung cancer, falls History of present illness: Ms. Aldridge is a 76 year old female with a diagnosis of lung ca-squamous cell type s/p bronch biopsy hospitalized due to falls. Her medical history significant for stage II, T1 cN1 aM0 left breast cancer status post lumpectomy and axillary lymph node dissection in December 2005 2 out of 18 lymph nodes were positive grade 2 ER [place] positive HER-2/em negative she did not take chemotherapy she underwent 5 years of anastrozole she had radiation therapy to left breast. She was seen recently in the emergency room with shortness of breath cough concerning for bronchitis, underwent a chest x- ray and a CT scan that showed a right upper lobe mass showing 2.8 x 4.2 x 3.2 cm in size, and enlarged right hilar lymph nodes measuring 1.2 cm left kidney exophytic 0.1 cm mass with a cystic competent. She is a chronic smoker smokes a pack and a half since she was 14 years of age. She has history of COPD she uses oxygen at nighttime. She was seen by Pulmonary, Bronch bx---poorly diff squamous cell ca She was recently seen in the clinic for follow-up after biopsy results. Patient could not complete PET scan due to anxiety. Initial CT imaging had shown a 2.8 x 4.2 x 3.2 cm size mass as noted above with right hilar lymphadenopathy and left kidney mass. She had a productive cough which later was dry persistent cough as result of that she was prescribed cough suppressants. Patient had repeated falls, she lives by herself helped by her 2 daughters. She was further worked up with labs, CT head which were unremarkable for any other to light abnormalities, cultures are negative up-to-date a CT scan of the head did not show any acute events. She had a CTA at admission which showed increase in size of the right upper lobe mass measuring up to 7 cm of compared to previous measurement at 4 cm consistent with progressive cancer. She had nodules in the thyroid gland enlarging right hilar adenopathy and metastatic disease. Patient denies any headache or changes in vision. She reports that her cough medicine might have contributed to her falls, she had also felt generally weak. She has some issues with her memory. She has a good appetite. Her cough is improved currently not requiring any medications. She does not have any pain. Past Med Surg Social Fam HX - Past Medical History Medical history: cancer, COPD, hypertension Psychiatric history: no psych history - Past Surgical History Surgical History: cataract - Social History Smoking Status: Current every day smoker Smokeless Tobacco Status: No Alcohol use: none Drug use: none Medications and Allergies Albuterol Sulfate [Albuterol Inhaler] 2 puff IH Q4-6H PRN 06/20/15 [History] Losartan [Cozaar] 25 mg PO DAILY 06/20/15 [History] Ipratropium/Albuterol Neb [Duoneb] 3 ml IH Q6HR PRN 12/23/16 [History] Budesonide/Formoterol 160/4.5 [Symbicort 160/4.5] 1 puff IH BID 01/05/17 [ History] Guaifenesin [Mucinex] 600 mg PO Q12H PRN 01/05/17 [History] Allergies Amoxicillin Allergy (Verified 12/23/16 08:32) Difficulty Swallowing RASH Review of systems: as in HPI Oncology - Exam - Constitutional Vitals: Temp Pulse Resp BP Pulse Ox 97.6 F 80 16 175/83 96 01/06/17 07:14 01/06/17 07:14 01/06/17 07:14 01/06/17 07:14 01/06/17 07:14 General appearance: thin Exam: cachectic - Head Head exam: Present: atraumatic, normal inspection - Eye Eye exam: Present: sclera anicteric - ENT ENT exam: Present: normal oropharynx - Neck Neck exam: Present: full ROM - Respiratory Respiratory exam: Present: CTAB Additional comments: lou air entry decreased no rhnochi or rales - Cardiovascular Cardiovascular exam: Present: +S1, +S2 - GI/Abdominal GI/Abdominal exam: Present: normal bowel sounds, soft - Extremities Exam Extremities exam: Present: normal inspection - Neurological Exam Neurological exam: Present: alert, CN II-XII intact, oriented X3 - Psychiatric Psychiatric exam: Present: normal affect Oncology - Results - Labs Labs: Short CBC 01/06/17 Range/Units 03:49 WBC 11.2 H D (4.3-11.1) K/mcL Hgb 11.1 L (11.5-15.4) g/dL Hct 33.3 L (35.3-44.9) % Plt Count 325 (140-400) K/mcL Neutrophils # 8.6 (1.6-8.9) K/mcL BMP 01/06/17 03:49 Sodium 135 L Potassium 3.8 Chloride 100 Carbon Dioxide 26 BUN 13 Creatinine 0.71 Glucose 117 H Calcium 8.9 - Imaging and Cardiology CT scan - chest Status: image reviewed by me Consult Discharge Plan - Plan Referrals: Riddhi Sosa, SERVICE PLUMBER [Primary Care Provider] -
--- NOTE | 2017-01-06 08:48 | Palliative Progress Note ---
<Noe Mohan - Last Filed: 01/06/17 08:45> Date of Encounter: 01/06/17 Time of Encounter: 08:46 - Assessment and plan (1) Goals of care, counseling/discussion Current Visit: Yes Status: Acute Assessment and plan: Will maintain her code status as DNR - CCA/DNI Oncology consulted, appreciate recommendations on palliative chemo/radiation Social work consulted; she has been accepted for [facility] upon discharge (2) Lung cancer Current Visit: Yes Status: Acute Assessment and plan: Progressively enlarging RUL mass with hilar LAD seen on chest CT Dr. Bates consulted, appreciate recommendations Qualifiers: Laterality: right Lung location: upper lobe of lung Qualified Code(s): C34.11 - Malignant neoplasm of upper lobe, right bronchus or lung (3) Recurrent falls Current Visit: Yes Status: Acute Assessment and plan: Given possibility of metastatic disease to the head causing her symptoms, she would benefit from MRI brain Unfortunately she has claustrophobia and is unable to get it done here; she may be candidate for open MRI once discharged - Time Spent With Patient Total time spent is greater than 50% in coordination of care (as documented) at patient's floor/unit and/or counseling patient: - Subjective Interval history: Pt seen and examined. She states that she is pain free this morning and has no issues with shortness of breath. She did not eat her breakfast yet but did not have any issues with dinner last night. Denies nausea, vomiting, fever, diarrhea. She does claim that she has not had a bowel movement in 2 weeks. - Constitutional Vitals: Abnormal lab results WBC 11.2 K/mcL (4.3-11.1) H D 01/06/17 03:49 Hgb 11.1 g/dL (11.5-15.4) L 01/06/17 03:49 Hct 33.3 % (35.3-44.9) L 01/06/17 03:49 MCH 27.8 pg (28.0-33.3) L 01/06/17 03:49 D-Dimer 1503 ng/mLFEU (0-500) H 01/04/17 16:05 Sodium 135 mEq/L (136-145) L 01/06/17 03:49 Glucose 117 mg/dL (70-99) H 01/06/17 03:49 POC Glucose 124 (58-89) H 01/04/17 16:17 Urine Ketones 15 mg/dL (Negative) H 01/04/17 18:00 Urine Blood Trace (Negative) H 01/04/17 18:00 General appearance: Present: cooperative, no acute distress - Head Head exam: Present: atraumatic, normal inspection, normocephalic - Eye Eye exam: Present: PERRL, sclera anicteric - Respiratory Respiratory exam: Present: rales (faint). Absent: respiratory distress - Cardiovascular Cardiovascular exam: Present: RRR, +S1, +S2 - GI/Abdominal GI/Abdominal exam: Present: soft. Absent: distended, firm, tenderness - Extremities Exam Extremities exam: Absent: pedal edema, tenderness - Neurological Exam Neurological exam: Present: alert, no focal deficits, strengths equal and symetr throughout. Absent: facial droop, speech deficit - Psychiatric Psychiatric exam: Present: normal affect, normal mood Palliative Quality Palliative Quality: Screen for Code Status: Yes, Screen for Goals of Care: Yes, Screen for Pain: Yes, If Pain Regimen Started, Initiate Bowel Regimen: Yes, Screen for Nausea/Vomitting: Yes Code Status: 01/04/17 19:55 Resuscitation Status: Active [RES] Routine Comment: Resuscitation Status: [id number] - Labs CBC & Chem 7: 01/06/17 03:49 01/06/17 03:49 Labs: Laboratory Results - last 24 hr 01/06/17 01/06/17 03:49 03:49 WBC 11.2 H D RBC 3.99 Hgb 11.1 L Hct 33.3 L MCV 83.5 MCH 27.8 L MCHC 33.3 RDW 12.9 Plt Count 325 MPV 9.7 Immature Gran % 0.4 Seg Neutrophils % 76.4 Lymphocytes % 15.0 Monocytes % 7.0 Eosinophils % 1.0 Basophils % 0.2 Neutrophils # 8.6 Lymphocytes # 1.7 Monocytes # 0.8 Eosinophils # 0.1 Basophils # 0.0 Sodium 135 L Potassium 3.8 Chloride 100 Carbon Dioxide 26 BUN 13 Creatinine 0.71 Est GFR ( Amer) > 60 Est GFR (Non-Af Amer) > 60 BUN/Creatinine Ratio 18 Glucose 117 H Calculated Osmolality 281 Calcium 8.9 - ABG Interpretation ABG results: PT/INR, D-dimer D-Dimer 1503 ng/mLFEU (0-500) H 01/04/17 16:05 Consult Discharge Plan - Plan Referrals: Riddhi Sosa, IMMIGRATION COORDINATOR [Primary Care Provider] - <Lucio Martinez - Last Filed: 01/06/17 09:21> Date of Encounter: 01/06/17 - Time Spent With Patient Total time spent is greater than 50% in coordination of care (as documented) at patient's floor/unit and/or counseling patient: - Constitutional Vitals: Abnormal lab results WBC 11.2 K/mcL (4.3-11.1) H D 01/06/17 03:49 Hgb 11.1 g/dL (11.5-15.4) L 01/06/17 03:49 Hct 33.3 % (35.3-44.9) L 01/06/17 03:49 MCH 27.8 pg (28.0-33.3) L 01/06/17 03:49 D-Dimer 1503 ng/mLFEU (0-500) H 01/04/17 16:05 Sodium 135 mEq/L (136-145) L 01/06/17 03:49 Glucose 117 mg/dL (70-99) H 01/06/17 03:49 POC Glucose 124 (58-89) H 01/04/17 16:17 Urine Ketones 15 mg/dL (Negative) H 01/04/17 18:00 Urine Blood Trace (Negative) H 01/04/17 18:00 - Attending Attestation I examined this patient and my medical decision-making was reviewed with the AIR TWISTER WINDER/PA/Advanced Practice Nurse/Resident Physician. I agree with the documented findings, disposition and treatment plan as described except to the extent set forth below. Palliative Quality Code Status: 01/04/17 19:55 Resuscitation Status: Active [RES] Routine Comment: Resuscitation Status: [id number] - Labs CBC & Chem 7: 01/06/17 03:49 01/06/17 03:49 Labs: Laboratory Results - last 24 hr 01/06/17 01/06/17 03:49 03:49 WBC 11.2 H D RBC 3.99 Hgb 11.1 L Hct 33.3 L MCV 83.5 MCH 27.8 L MCHC 33.3 RDW 12.9 Plt Count 325 MPV 9.7 Immature Gran % 0.4 Seg Neutrophils % 76.4 Lymphocytes % 15.0 Monocytes % 7.0 Eosinophils % 1.0 Basophils % 0.2 Neutrophils # 8.6 Lymphocytes # 1.7 Monocytes # 0.8 Eosinophils # 0.1 Basophils # 0.0 Sodium 135 L Potassium 3.8 Chloride 100 Carbon Dioxide 26 BUN 13 Creatinine 0.71 Est GFR ( Amer) > 60 Est GFR (Non-Af Amer) > 60 BUN/Creatinine Ratio 18 Glucose 117 H Calculated Osmolality 281 Calcium 8.9 - ABG Interpretation ABG results: PT/INR, D-dimer D-Dimer 1503 ng/mLFEU (0-500) H 01/04/17 16:05
[2017-01-06] MEDS: Sennosides/Docusate Sodium TABLET PO SCH ×2 (10:01→20:21)
[2017-01-06] MEDS: levoFLOXacin 500 MG TABLET PO SCH (10:02)
[2017-01-06] MEDS: Nicotine 21 MG PATCH.TD24 TD SCH (10:02)
--- NOTE | 2017-01-06 10:51 | Internal Med Progress Note ---
<Jolynn Bruno - Last Filed: 01/06/17 10:49> Date of Encounter: 01/06/17 Time of Encounter: 10:49 - Assessment and plan (1) Recurrent falls Current Visit: Yes Status: Acute Assessment and plan: appreciate palliate recommendations will need rehab on discharge, she has been accepted for [facility] --SNF/ECF recommended by PT/OT (2) Back pain Current Visit: Yes Status: Acute Assessment and plan: Lumbar spine x-ray showed acute/subacute mild compression deformity of the superior endplate L1 Supportive care: pain management patient is currently pain free Qualifiers: Back pain location: low back pain Chronicity: acute Back pain laterality : midline Sciatica presence: without sciatica Qualified Code(s): M54.5 - Low back pain (3) Nicotine dependence Current Visit: Yes Status: Acute Assessment and plan: nicotine patch Qualifiers: Nicotine product type: cigarettes Substance use status: uncomplicated Qualified Code(s): F17.210 - Nicotine dependence, cigarettes, uncomplicated (4) Lung cancer Current Visit: Yes Status: Acute Assessment and plan: appreciate oncology recommendations Qualifiers: Laterality: right Lung location: upper lobe of lung Qualified Code(s): C34.11 - Malignant neoplasm of upper lobe, right bronchus or lung (5) COPD (chronic obstructive pulmonary disease) Current Visit: Yes Status: Chronic Assessment and plan: Patient admits to noncompliance with daily inhaler use. Duonebs as needed, albuterol as needed Qualifiers: COPD type: unspecified COPD Qualified Code(s): J44.9 - Chronic obstructive pulmonary disease, unspecified (6) HTN (hypertension) Current Visit: Yes Status: Chronic Assessment and plan: continue home medication Qualifiers: Hypertension type: essential hypertension Qualified Code(s): I10 - Essential (primary) hypertension - Subjective Interval history: Patient seen and examined. Open to rehab at discharge. She has not had a bowel movement since admission - she cannot recall her last bowel movement. No pain at this time. - Constitutional Vitals: Temp Pulse Resp BP Pulse Ox 97.6 F 80 16 175/83 96 01/06/17 07:14 01/06/17 07:14 01/06/17 07:14 01/06/17 07:14 01/06/17 07:14 General appearance: Present: no acute distress, answers questions appropriately - Head Head exam: Present: atraumatic, normocephalic - Eye Eye exam: Present: PERRL, conjuntiva pink, sclera anicteric Pupils: Present: PERRL - ENT ENT exam: Present: mucous membranes moist - Neck Neck exam general surgery: Present: supple - Respiratory Respiratory exam: Present: CTAB - Cardiovascular Cardiovascular exam: Present: RRR, +S1, +S2 - GI/Abdominal GI/Abdominal exam: Present: normal bowel sounds, soft. Absent: tenderness - Extremities Exam Extremities exam: Present: warm. Absent: pedal edema, tenderness - Neurological Exam Neurological exam: Present: CN II-XII intact, oriented X3, no focal deficits. Absent: pronater drift, facial droop, speech deficit - Skin Skin exam: Present: dry, intact Internal Medicine: Result - Labs CBC & Chem 7: 01/06/17 03:49 01/06/17 03:49 Labs: Short CBC 01/06/17 Range/Units 03:49 WBC 11.2 H D (4.3-11.1) K/mcL Hgb 11.1 L (11.5-15.4) g/dL Hct 33.3 L (35.3-44.9) % Plt Count 325 (140-400) K/mcL Neutrophils # 8.6 (1.6-8.9) K/mcL BMP 01/06/17 03:49 Sodium 135 L Potassium 3.8 Chloride 100 Carbon Dioxide 26 BUN 13 Creatinine 0.71 Glucose 117 H Calcium 8.9 - ABG Interpretation ABG results: PT/INR, D-dimer D-Dimer 1503 ng/mLFEU (0-500) H 01/04/17 16:05 - VTE Documentation of Mechanical Device: Intermittent pneumatic compression device Consult Discharge Plan - Plan Referrals: Riddhi Sosa, POT FEEDER [Primary Care Provider] - <Oscar Marcial - Last Filed: 01/06/17 18:53> Date of Encounter: 01/06/17 - Constitutional Vitals: Temp Pulse Resp BP Pulse Ox 97.8 F 81 24 150/97 95 01/06/17 17:05 01/06/17 17:05 01/06/17 17:05 01/06/17 17:05 01/06/17 17:05 Internal Medicine: Result - Labs CBC & Chem 7: 01/06/17 03:49 01/06/17 03:49 Labs: Short CBC 01/06/17 Range/Units 03:49 WBC 11.2 H D (4.3-11.1) K/mcL Hgb 11.1 L (11.5-15.4) g/dL Hct 33.3 L (35.3-44.9) % Plt Count 325 (140-400) K/mcL Neutrophils # 8.6 (1.6-8.9) K/mcL BMP 01/06/17 03:49 Sodium 135 L Potassium 3.8 Chloride 100 Carbon Dioxide 26 BUN 13 Creatinine 0.71 Glucose 117 H Calcium 8.9 - ABG Interpretation ABG results: PT/INR, D-dimer D-Dimer 1503 ng/mLFEU (0-500) H 01/04/17 16:05 - Attending Attestation I examined this patient and my medical decision-making was reviewed with the YARDING SUPERVISOR/PA/Advanced Practice Nurse/Resident Physician. I agree with the documented findings, disposition and treatment plan as described except to the extent set forth below. Spoke to oncology. We will get CT abdomen and pelvis. Patient is comfortable. Patient/family is talking to palliative care and discussing options. Patient and family starting to oncology and discussing options for possible palliative chemotherapy
[2017-01-06] MEDS ORDERED: Ipratropium/Albuterol Neb 3 ML IH PRN (10:55)
[2017-01-06] MEDS: *HR* HYDROcodone/Acet 5/325 mg TABLET PO PRN (17:25)
[2017-01-07 05:28] LABS: Basophils % 0.4 %; Eosinophils # 0.2 K/mcL (0.0-0.6); Eosinophils % 2.5 %; Hematocrit 32.8 % (35.3-44.9); Hemoglobin 10.8 g/dL (11.5-15.4); Immature Granulocytes % 0.6 % (0-4); Lymphocytes # 0.9 K/mcL (0.6-4.6); Lymphocytes % 11.1 %; Mean Corpuscular HGB Conc 32.9 g/dL (31.6-35.5); Mean Corpuscular Hemoglobin 27.3 pg (28.0-33.3); Mean Corpuscular Volume 82.8 fL (83.0-100.0); Mean Platelet Volume 9.6 fL (9.4-12.4); Monocytes # 0.5 K/mcL (0.0-1.3); Monocytes % 6.7 %; Neutrophils # 6.3 K/mcL (1.6-8.9); Platelet Count 313 K/mcL (140-400); Red Blood Count 3.96 M/mcL (3.82-4.97); Segmented Neutrophils % 78.7 %
[2017-01-07] MEDS: *HR* Heparin 5,000 UNIT/ML VIAL SQ SCH ×2 (05:33→16:46)
[2017-01-07 05:46] LABS: BUN/Creatinine Ratio 14 (6-26); Blood Urea Nitrogen 10 mg/dL (7-20); Calcium 8.8 mg/dL (8.6-10.8); Carbon Dioxide 26 mEq/L (19-29); Chloride 96 mEq/L (98-109); Glucose 155 mg/dL (70-99); Osmolality,Calculated 270 (280-300); Potassium 3.6 mEq/L (3.5-4.5); Sodium 129 mEq/L (136-145); eGFR For African Americans > 60 (> 60); eGFR For Non-African Americans > 60 (> 60)
--- NOTE | 2017-01-07 08:40 | Internal Med Progress Note ---
<Jolynn Bruno - Last Filed: 01/07/17 08:38> Date of Encounter: 01/07/17 Time of Encounter: 08:38 - Assessment and plan (1) Recurrent falls Current Visit: Yes Status: Acute Assessment and plan: appreciate palliate recommendations plan to discharge to rehab, has been accepted to [facility] --SNF/ECF recommended by PT/OT (2) Mental status, decreased Current Visit: Yes Status: Acute Assessment and plan: CT head ordered due to acute onset lethargy with decreased orientation (3) Back pain Current Visit: Yes Status: Resolved Assessment and plan: Lumbar spine x-ray showed acute/subacute mild compression deformity of the superior endplate L1 Supportive care: pain management Qualifiers: Back pain location: low back pain Chronicity: acute Back pain laterality : midline Sciatica presence: without sciatica Qualified Code(s): M54.5 - Low back pain (4) Nicotine dependence Current Visit: Yes Status: Acute Assessment and plan: nicotine patch Qualifiers: Nicotine product type: cigarettes Substance use status: uncomplicated Qualified Code(s): F17.210 - Nicotine dependence, cigarettes, uncomplicated (5) Lung cancer Current Visit: Yes Status: Acute Assessment and plan: appreciate oncology recommendations Qualifiers: Laterality: right Lung location: upper lobe of lung Qualified Code(s): C34.11 - Malignant neoplasm of upper lobe, right bronchus or lung (6) COPD (chronic obstructive pulmonary disease) Current Visit: Yes Status: Chronic Assessment and plan: Patient admits to noncompliance with daily inhaler use. Duonebs as needed, albuterol as needed Qualifiers: COPD type: unspecified COPD Qualified Code(s): J44.9 - Chronic obstructive pulmonary disease, unspecified (7) HTN (hypertension) Current Visit: Yes Status: Chronic Assessment and plan: continue home medication Qualifiers: Hypertension type: essential hypertension Qualified Code(s): I10 - Essential (primary) hypertension - Subjective Interval history: Patient seen and examined, sleeping during my exam. Has had decreased orientation and lethargy overnight and this morning. - Constitutional Vitals: Temp Pulse Resp BP Pulse Ox 98.9 F 86 16 141/65 96 01/07/17 07:30 01/07/17 07:30 01/07/17 07:30 01/07/17 07:30 01/07/17 07:30 General appearance: Present: no acute distress - Head Head exam: Present: atraumatic, normocephalic - Neck Neck exam general surgery: Present: supple - Respiratory Respiratory exam: Present: CTAB - Cardiovascular Cardiovascular exam: Present: RRR, +S1, +S2 - GI/Abdominal GI/Abdominal exam: Present: soft. Absent: tenderness - Extremities Exam Extremities exam: Present: warm. Absent: pedal edema, tenderness - Skin Skin exam: Present: dry, intact Internal Medicine: Result - Labs CBC & Chem 7: 01/07/17 04:49 01/07/17 04:49 Labs: Short CBC 01/07/17 Range/Units 04:49 WBC 7.9 (4.3-11.1) K/mcL Hgb 10.8 L (11.5-15.4) g/dL Hct 32.8 L (35.3-44.9) % Plt Count 313 (140-400) K/mcL Neutrophils # 6.3 (1.6-8.9) K/mcL BMP 01/07/17 04:49 Sodium 129 L Potassium 3.6 Chloride 96 L Carbon Dioxide 26 BUN 10 Creatinine 0.69 Glucose 155 H Calcium 8.8 - ABG Interpretation ABG results: PT/INR, D-dimer D-Dimer 1503 ng/mLFEU (0-500) H 01/04/17 16:05 - Impressions Impressions Abdomen CT 01/06/17 18:56 IMPRESSION: 1. Only CT images of the abdomen were performed. Pelvic images were not obtained. 2. No evidence of metastatic disease within the abdomen. 3. Mild dilatation of the intra and extrahepatic bile ducts again noted, slightly more prominent than the prior study. Correlate for clinical evidence of obstruction. 4. Fusiform ectasia of the suprarenal abdominal aorta up to 2.9 cm, slightly more ectatic from prior study. Please see recommendations below. 5. New compression deformity of the L1 vertebral body, with approximate 25% loss of height, new from prior abdominal CT study. RECOMMENDATIONS: Managing Abdominal Aortic Aneurysms 2.6-2.9 cm: 5 year follow up. 3.0-3.4 cm: 3 year follow up 3.5-3.9 cm: 1 year follow up. 4.0-4.4 cm: 1 year follow up. Recommend vascular consultation. 4.5-5.4 cm: 6 month follow up. Recommend vascular consultation. Greater than or equal to 5.5 cm: Referral to vascular surgeon. Reference: Tereso et al. The care of patients with an abdominal aortic aneurysm: The Society of Vascular Surgery practice guidelines. Journal of Vascular Surgery. Vol 50, Number 85. Joao et al. Managing Incidental Findings on Abdominal and Pelvic CT and MRI, Part 2: White Paper of the ACR Incidental Findings Committee II on Vascular Findings. J Am Izzy Radiol 2013;10:789-794 D/ / Garo Mckinley MD / Garo Mckinley MD Interpreting Provider: Garo Mckinley MD - VTE Documentation of Mechanical Device: Intermittent pneumatic compression device Consult Discharge Plan - Plan Referrals: Riddhi Sosa, PV DESIGN AND INSTALLATION TECHNICIAN [Primary Care Provider] - <Oscar Marcial P - Last Filed: 01/07/17 17:39> Date of Encounter: 01/07/17 - Constitutional Vitals: Temp Pulse Resp BP Pulse Ox 98 F 82 16 171/88 94 01/07/17 17:00 01/07/17 17:00 01/07/17 17:00 01/07/17 17:00 01/07/17 17:00 Internal Medicine: Result - Labs CBC & Chem 7: 01/07/17 04:49 01/07/17 04:49 Labs: Short CBC 01/07/17 Range/Units 04:49 WBC 7.9 (4.3-11.1) K/mcL Hgb 10.8 L (11.5-15.4) g/dL Hct 32.8 L (35.3-44.9) % Plt Count 313 (140-400) K/mcL Neutrophils # 6.3 (1.6-8.9) K/mcL BMP 01/07/17 04:49 Sodium 129 L Potassium 3.6 Chloride 96 L Carbon Dioxide 26 BUN 10 Creatinine 0.69 Glucose 155 H Calcium 8.8 - ABG Interpretation ABG results: PT/INR, D-dimer D-Dimer 1503 ng/mLFEU (0-500) H 01/04/17 16:05 - Impressions Impressions Abdomen CT 01/06/17 18:56 IMPRESSION: 1. Only CT images of the abdomen were performed. Pelvic images were not obtained. 2. No evidence of metastatic disease within the abdomen. 3. Mild dilatation of the intra and extrahepatic bile ducts again noted, slightly more prominent than the prior study. Correlate for clinical evidence of obstruction. 4. Fusiform ectasia of the suprarenal abdominal aorta up to 2.9 cm, slightly more ectatic from prior study. Please see recommendations below. 5. New compression deformity of the L1 vertebral body, with approximate 25% loss of height, new from prior abdominal CT study. RECOMMENDATIONS: Managing Abdominal Aortic Aneurysms 2.6-2.9 cm: 5 year follow up. 3.0-3.4 cm: 3 year follow up 3.5-3.9 cm: 1 year follow up. 4.0-4.4 cm: 1 year follow up. Recommend vascular consultation. 4.5-5.4 cm: 6 month follow up. Recommend vascular consultation. Greater than or equal to 5.5 cm: Referral to vascular surgeon. Reference: Tereso et al. The care of patients with an abdominal aortic aneurysm: The Society of Vascular Surgery practice guidelines. Journal of Vascular Surgery. Vol 50, Number 85. Joao et al. Managing Incidental Findings on Abdominal and Pelvic CT and MRI, Part 2: White Paper of the ACR Incidental Findings Committee II on Vascular Findings. J Am Izzy Radiol 2013;10:789-794 D/ / Garo Mckinley MD / Garo Mckinley MD Interpreting Provider: Garo Mckinley MD - Attending Attestation I examined this patient and my medical decision-making was reviewed with the DRAWING SUPERVISOR/PA/Advanced Practice Nurse/Resident Physician. I agree with the documented findings, disposition and treatment plan as described except to the extent set forth below.
[2017-01-07] MEDS: levoFLOXacin 500 MG TABLET PO SCH (09:07)
[2017-01-07] MEDS: Sennosides/Docusate Sodium TABLET PO SCH ×2 (09:07→21:30)
[2017-01-07] MEDS: Nicotine 21 MG PATCH.TD24 TD SCH (09:07)
--- NOTE | 2017-01-07 09:20 | Palliative Progress Note ---
<Kuldeep Juarez - Last Filed: 01/07/17 10:43> Date of Encounter: 01/07/17 Time of Encounter: 09:18 - Assessment and plan (1) Goals of care, counseling/discussion Current Visit: Yes Status: Acute Assessment and plan: -Maintain code status of DNR-CCA/DNI -Social work consulted: accepted at [facility] upon discharge -Oncology consulted in regards to palliative chemo/radiation: The family states they have talked and do not want to proceed at this time due to the fact that it has limited efficacy and could possibly make her weaker or worsen her clinical status faster. They wanted to persue rehab if the patient has a chance at improving strength. They understand with declining clinical status, hospice is an option to consider. At this point they want to continue to see how she does clinically before hospice. The patient herself is more reluctant to hospice 2/2 dying several days after becoming hospice. (2) Lung cancer Current Visit: Yes Status: Acute Assessment and plan: Progressively enlarging RUL mass with hilar hymphadenopathy Oncology, Dr. Bates, consulted: palliative chemo/radiation offered. Qualifiers: Laterality: right Lung location: upper lobe of lung Qualified Code(s): C34.11 - Malignant neoplasm of upper lobe, right bronchus or lung (3) Mental status, decreased Current Visit: Yes Status: Acute Assessment and plan: Acute decline in mental status today. Accompanied by abnormal finger to nose on the right and abnormal vision on the right. Not clear if new onset or worsening of minimally noticeable symptoms. The patient's personality and ability to compensate for neuro findings limits overall assessment. - Time Spent With Patient Total time spent is greater than 50% in coordination of care (as documented) at patient's floor/unit and/or counseling patient: 25 - 35 minutes - Subjective Interval history: Significant clinical decline over the last 24 hours. From walking to bathroom with help to barely getting to bedside commode. The patient is confused to year. Becomes easily tired during physical exam. - Constitutional Vitals: Abnormal lab results Hgb 10.8 g/dL (11.5-15.4) L 01/07/17 04:49 Hct 32.8 % (35.3-44.9) L 01/07/17 04:49 MCV 82.8 fL (83.0-100.0) L 01/07/17 04:49 MCH 27.3 pg (28.0-33.3) L 01/07/17 04:49 D-Dimer 1503 ng/mLFEU (0-500) H 01/04/17 16:05 Sodium 129 mEq/L (136-145) L 01/07/17 04:49 Chloride 96 mEq/L (98-109) L 01/07/17 04:49 Glucose 155 mg/dL (70-99) H 01/07/17 04:49 POC Glucose 124 (58-89) H 01/04/17 16:17 Calculated Osmolality 270 (280-300) L 01/07/17 04:49 Urine Ketones 15 mg/dL (Negative) H 01/04/17 18:00 Urine Blood Trace (Negative) H 01/04/17 18:00 - Head Head exam: Present: atraumatic, normal inspection - ENT ENT exam: Present: mucous membranes moist - Neck Neck exam: Present: normal inspection - Respiratory Respiratory exam: Absent: accessory muscle use, respiratory distress - GI/Abdominal GI/Abdominal exam: Present: soft. Absent: tenderness - Extremities Exam Extremities exam: Present: normal inspection. Absent: pedal edema - Neurological Exam Neurological exam: Present: alert, motor sensory deficit. Absent: normal gait, no focal deficits, facial droop, speech deficit Additional comments: Pt sees "3" fingers when presented with 1. The patient does not corporate when just testing the right eye. Symptoms worse when testing right lateral/periphal vision. - Expanded Neurological Exam Neurological exam: Present: ataxia Patient oriented to: Present: person, place. Absent: time Speech: Present: fluid speech Cranial nerves: EOM's intact: Normal, facial palsy with forehead movement: Normal, facial sensation: Normal, nystagmus: Normal Ataxia: Present: yes Cerebellar function: finger to nose: Abnormal Right, heel to zamarripa: Normal Upper motor neuron: pronator drift: Normal Sensory exam: lower extremity light touch: Normal, upper extremity light touch: Normal Neuro motor strength exam: LUE: 5, RUE: 5, LLE: 5, RLE: 5 Coma Scale Eye Opening: Spontaneous Coma Scale Motor Response: Obeys Commands Coma Scale Verbal Response: Oriented Coma Scale Total: 15 - Psychiatric Psychiatric exam: Present: normal affect, normal mood - Skin Skin exam: Present: intact. Absent: abrasion, rash Palliative Quality Palliative Quality: Screen for Code Status: Yes, Screen for Goals of Care: Yes, Screen for Pain: Yes, If Pain Regimen Started, Initiate Bowel Regimen: Yes, Screen for Nausea/Vomitting: Yes - Labs CBC & Chem 7: 01/07/17 04:49 01/07/17 04:49 Labs: Laboratory Results - last 24 hr 01/07/17 01/07/17 04:49 04:49 WBC 7.9 RBC 3.96 Hgb 10.8 L Hct 32.8 L MCV 82.8 L MCH 27.3 L MCHC 32.9 RDW 13.0 Plt Count 313 MPV 9.6 Immature Gran % 0.6 Seg Neutrophils % 78.7 Lymphocytes % 11.1 Monocytes % 6.7 Eosinophils % 2.5 Basophils % 0.4 Neutrophils # 6.3 Lymphocytes # 0.9 Monocytes # 0.5 Eosinophils # 0.2 Basophils # 0.0 Sodium 129 L Potassium 3.6 Chloride 96 L Carbon Dioxide 26 BUN 10 Creatinine 0.69 Est GFR ( Amer) > 60 Est GFR (Non-Af Amer) > 60 BUN/Creatinine Ratio 14 Glucose 155 H Calculated Osmolality 270 L Calcium 8.8 - Impressions Impressions Abdomen CT 01/06/17 18:56 IMPRESSION: 1. Only CT images of the abdomen were performed. Pelvic images were not obtained. 2. No evidence of metastatic disease within the abdomen. 3. Mild dilatation of the intra and extrahepatic bile ducts again noted, slightly more prominent than the prior study. Correlate for clinical evidence of obstruction. 4. Fusiform ectasia of the suprarenal abdominal aorta up to 2.9 cm, slightly more ectatic from prior study. Please see recommendations below. 5. New compression deformity of the L1 vertebral body, with approximate 25% loss of height, new from prior abdominal CT study. RECOMMENDATIONS: Managing Abdominal Aortic Aneurysms 2.6-2.9 cm: 5 year follow up. 3.0-3.4 cm: 3 year follow up 3.5-3.9 cm: 1 year follow up. 4.0-4.4 cm: 1 year follow up. Recommend vascular consultation. 4.5-5.4 cm: 6 month follow up. Recommend vascular consultation. Greater than or equal to 5.5 cm: Referral to vascular surgeon. Reference: Tereso et al. The care of patients with an abdominal aortic aneurysm: The Society of Vascular Surgery practice guidelines. Journal of Vascular Surgery. Vol 50, Number 85. Joao et al. Managing Incidental Findings on Abdominal and Pelvic CT and MRI, Part 2: White Paper of the ACR Incidental Findings Committee II on Vascular Findings. J Am Izzy Radiol 2013;10:789-794 D/ / Garo Mckinley MD / Garo Mckinley MD Interpreting Provider: Garo Mckinley MD - ABG Interpretation ABG results: PT/INR, D-dimer D-Dimer 1503 ng/mLFEU (0-500) H 01/04/17 16:05 Consult Discharge Plan - Plan Referrals: Riddhi Sosa, HOSPITALIST NOCTURNIST PHYSICIAN [Primary Care Provider] - <Lucio Martinez - Last Filed: 01/07/17 10:47> Date of Encounter: 01/07/17 - Time Spent With Patient Total time spent is greater than 50% in coordination of care (as documented) at patient's floor/unit and/or counseling patient: - Constitutional Vitals: Abnormal lab results Hgb 10.8 g/dL (11.5-15.4) L 01/07/17 04:49 Hct 32.8 % (35.3-44.9) L 01/07/17 04:49 MCV 82.8 fL (83.0-100.0) L 01/07/17 04:49 MCH 27.3 pg (28.0-33.3) L 01/07/17 04:49 D-Dimer 1503 ng/mLFEU (0-500) H 01/04/17 16:05 Sodium 129 mEq/L (136-145) L 01/07/17 04:49 Chloride 96 mEq/L (98-109) L 01/07/17 04:49 Glucose 155 mg/dL (70-99) H 01/07/17 04:49 POC Glucose 124 (58-89) H 01/04/17 16:17 Calculated Osmolality 270 (280-300) L 01/07/17 04:49 Urine Ketones 15 mg/dL (Negative) H 01/04/17 18:00 Urine Blood Trace (Negative) H 01/04/17 18:00 - Attending Attestation I examined this patient and my medical decision-making was reviewed with the Resident Physician. I agree with the documented findings, disposition and treatment plan as described except to the extent set forth below. - Labs CBC & Chem 7: 01/07/17 04:49 01/07/17 04:49 Labs: Laboratory Results - last 24 hr 01/07/17 01/07/17 04:49 04:49 WBC 7.9 RBC 3.96 Hgb 10.8 L Hct 32.8 L MCV 82.8 L MCH 27.3 L MCHC 32.9 RDW 13.0 Plt Count 313 MPV 9.6 Immature Gran % 0.6 Seg Neutrophils % 78.7 Lymphocytes % 11.1 Monocytes % 6.7 Eosinophils % 2.5 Basophils % 0.4 Neutrophils # 6.3 Lymphocytes # 0.9 Monocytes # 0.5 Eosinophils # 0.2 Basophils # 0.0 Sodium 129 L Potassium 3.6 Chloride 96 L Carbon Dioxide 26 BUN 10 Creatinine 0.69 Est GFR ( Amer) > 60 Est GFR (Non-Af Amer) > 60 BUN/Creatinine Ratio 14 Glucose 155 H Calculated Osmolality 270 L Calcium 8.8 - Impressions Impressions Abdomen CT 01/06/17 18:56
[2017-01-07] MEDS: 0.9 % Sodium Chloride 1,000 ML IVC SCH (11:19)
[2017-01-07] MEDS: *HR* HYDROcodone/Acet 5/325 mg TABLET PO PRN (11:19)
[2017-01-08] MEDS: 0.9 % Sodium Chloride 1,000 ML IVC SCH (00:31)
[2017-01-08] MEDS: *HR* Heparin 5,000 UNIT/ML VIAL SQ SCH (06:05)
[2017-01-08 06:32] LABS: Basophils % 0.4 %; Eosinophils # 0.5 K/mcL (0.0-0.6); Eosinophils % 4.4 %; Hematocrit 33.8 % (35.3-44.9); Hemoglobin 11.1 g/dL (11.5-15.4); Immature Granulocytes % 0.7 % (0-4); Lymphocytes # 1.4 K/mcL (0.6-4.6); Lymphocytes % 12.8 %; Mean Corpuscular HGB Conc 32.8 g/dL (31.6-35.5); Mean Corpuscular Hemoglobin 27.2 pg (28.0-33.3); Mean Corpuscular Volume 82.8 fL (83.0-100.0); Mean Platelet Volume 9.8 fL (9.4-12.4); Monocytes # 0.7 K/mcL (0.0-1.3); Monocytes % 6.3 %; Platelet Count 327 K/mcL (140-400); Red Blood Count 4.08 M/mcL (3.82-4.97); Segmented Neutrophils % 75.4 %
[2017-01-08 06:51] LABS: BUN/Creatinine Ratio 10 (6-26); Blood Urea Nitrogen 6 mg/dL (7-20); Calcium 8.6 mg/dL (8.6-10.8); Carbon Dioxide 23 mEq/L (19-29); Chloride 99 mEq/L (98-109); Glucose 113 mg/dL (70-99); Osmolality,Calculated 270 (280-300); Potassium 3.7 mEq/L (3.5-4.5); Sodium 131 mEq/L (136-145); eGFR For African Americans > 60 (> 60); eGFR For Non-African Americans > 60 (> 60)
[2017-01-08 07:56] VITALS: BP 170/85
[2017-01-08] MEDS: Nicotine 21 MG PATCH.TD24 TD SCH (08:29)
[2017-01-08] MEDS: levoFLOXacin 500 MG TABLET PO SCH (08:30)
[2017-01-08] MEDS: Sennosides/Docusate Sodium TABLET PO SCH (08:30)
--- NOTE | 2017-01-08 09:55 | Palliative Progress Note ---
<Kuldeep Juarez - Last Filed: 01/08/17 10:01> Date of Encounter: 01/08/17 Time of Encounter: 09:52 - Assessment and plan (1) Goals of care, counseling/discussion Current Visit: Yes Status: Acute Assessment and plan: -Maintain code status of DNR-CCA/DNI -Social work consulted: accepted at [facility] upon discharge -Oncology consulted in regards to palliative chemo/radiation: The family states they have talked and do not want to proceed at this time due to the fact that it has limited efficacy and could possibly make her weaker or worsen her clinical status faster. They wanted to persue rehab if the patient has a chance at improving strength. They understand with declining clinical status, hospice is an option to consider. At this point they want to continue to see how she does clinically before hospice. The patient herself is more reluctant to hospice 2/2 dying several days after becoming hospice. (2) Lung cancer Current Visit: Yes Status: Acute Assessment and plan: Progressively enlarging RUL mass with hilar hymphadenopathy Oncology, Dr. Bates, consulted: palliative chemo/radiation offered but declined at this time. Qualifiers: Laterality: right Lung location: upper lobe of lung Qualified Code(s): C34.11 - Malignant neoplasm of upper lobe, right bronchus or lung (3) Mental status, decreased Current Visit: Yes Status: Acute Assessment and plan: Resolved - back to baseline admission mental status. - Time Spent With Patient Total time spent is greater than 50% in coordination of care (as documented) at patient's floor/unit and/or counseling patient: - Subjective Interval history: Significantly improved overnight with significantly improved neuro findings. Pain currently controlled. No complaints. Understands she is going to rehab later today. Family at bedside. All questions of patient and family answered. - Constitutional Vitals: Abnormal lab results Hgb 11.1 g/dL (11.5-15.4) L 01/08/17 04:57 Hct 33.8 % (35.3-44.9) L 01/08/17 04:57 MCV 82.8 fL (83.0-100.0) L 01/08/17 04:57 MCH 27.2 pg (28.0-33.3) L 01/08/17 04:57 D-Dimer 1503 ng/mLFEU (0-500) H 01/04/17 16:05 Sodium 131 mEq/L (136-145) L 01/08/17 04:57 BUN 6 mg/dL (7-20) L 01/08/17 04:57 Glucose 113 mg/dL (70-99) H 01/08/17 04:57 POC Glucose 124 (58-89) H 01/04/17 16:17 Calculated Osmolality 270 (280-300) L 01/08/17 04:57 Urine Ketones 15 mg/dL (Negative) H 01/04/17 18:00 Urine Blood Trace (Negative) H 01/04/17 18:00 - Head Head exam: Present: atraumatic, normal inspection - Eye Eye exam: Present: EOMI, normal appearance Additional comments: slightly decreased right lower visual field deficit. - ENT ENT exam: Present: mucous membranes moist - Neck Neck exam: Present: full ROM, normal inspection - Respiratory Respiratory exam: Absent: accessory muscle use, respiratory distress - Extremities Exam Extremities exam: Present: normal inspection. Absent: pedal edema - Neurological Exam Neurological exam: Present: alert, oriented X3. Absent: facial droop, speech deficit Additional comments: pt with improved inattention to the right. - Expanded Neurological Exam Patient oriented to: Present: person, place, time Speech: Present: fluid speech Cerebellar function: finger to nose: Abnormal Right (improved from yesterday) Neuro motor strength exam: LUE: 5, RUE: 5, LLE: 5, RLE: 5 Coma Scale Eye Opening: Spontaneous Coma Scale Motor Response: Obeys Commands Coma Scale Verbal Response: Oriented Coma Scale Total: 15 - Psychiatric Psychiatric exam: Present: normal affect, normal mood - Skin Skin exam: Present: intact. Absent: abrasion, rash Palliative Quality Palliative Quality: Screen for Code Status: Yes, Screen for Goals of Care: Yes, Screen for Pain: Yes, If Pain Regimen Started, Initiate Bowel Regimen: Yes, Screen for Nausea/Vomitting: Yes - Labs CBC & Chem 7: 01/08/17 04:57 01/08/17 04:57 Labs: Laboratory Results - last 24 hr 01/08/17 01/08/17 04:57 04:57 WBC 10.5 RBC 4.08 Hgb 11.1 L Hct 33.8 L MCV 82.8 L MCH 27.2 L MCHC 32.8 RDW 13.0 Plt Count 327 MPV 9.8 Immature Gran % 0.7 Seg Neutrophils % 75.4 Lymphocytes % 12.8 Monocytes % 6.3 Eosinophils % 4.4 Basophils % 0.4 Neutrophils # 8.0 Lymphocytes # 1.4 Monocytes # 0.7 Eosinophils # 0.5 Basophils # 0.0 Sodium 131 L Potassium 3.7 Chloride 99 Carbon Dioxide 23 BUN 6 L Creatinine 0.59 Est GFR ( Amer) > 60 Est GFR (Non-Af Amer) > 60 BUN/Creatinine Ratio 10 Glucose 113 H Calculated Osmolality 270 L Calcium 8.6 - ABG Interpretation ABG results: PT/INR, D-dimer D-Dimer 1503 ng/mLFEU (0-500) H 01/04/17 16:05 Consult Discharge Plan - Plan Referrals: Riddhi Sosa, WAITER/WAITRESS [employer]IN CLASS [Primary Care Provider] - <Lucio Martinez - Last Filed: 01/08/17 10:13> Date of Encounter: 01/08/17 - Time Spent With Patient Total time spent is greater than 50% in coordination of care (as documented) at patient's floor/unit and/or counseling patient: - Constitutional Vitals: Abnormal lab results Hgb 11.1 g/dL (11.5-15.4) L 01/08/17 04:57 Hct 33.8 % (35.3-44.9) L 01/08/17 04:57 MCV 82.8 fL (83.0-100.0) L 01/08/17 04:57 MCH 27.2 pg (28.0-33.3) L 01/08/17 04:57 D-Dimer 1503 ng/mLFEU (0-500) H 01/04/17 16:05 Sodium 131 mEq/L (136-145) L 01/08/17 04:57 BUN 6 mg/dL (7-20) L 01/08/17 04:57 Glucose 113 mg/dL (70-99) H 01/08/17 04:57 POC Glucose 124 (58-89) H 01/04/17 16:17 Calculated Osmolality 270 (280-300) L 01/08/17 04:57 Urine Ketones 15 mg/dL (Negative) H 01/04/17 18:00 Urine Blood Trace (Negative) H 01/04/17 18:00 - Attending Attestation I examined this patient and my medical decision-making was reviewed with the Resident Physician. I agree with the documented findings, disposition and treatment plan as described except to the extent set forth below. - Labs CBC & Chem 7: 01/08/17 04:57 01/08/17 04:57 Labs: Laboratory Results - last 24 hr 01/08/17 01/08/17 04:57 04:57 WBC 10.5 RBC 4.08 Hgb 11.1 L Hct 33.8 L MCV 82.8 L MCH 27.2 L MCHC 32.8 RDW 13.0 Plt Count 327 MPV 9.8 Immature Gran % 0.7 Seg Neutrophils % 75.4 Lymphocytes % 12.8 Monocytes % 6.3 Eosinophils % 4.4 Basophils % 0.4 Neutrophils # 8.0 Lymphocytes # 1.4 Monocytes # 0.7 Eosinophils # 0.5 Basophils # 0.0 Sodium 131 L Potassium 3.7 Chloride 99 Carbon Dioxide 23 BUN 6 L Creatinine 0.59 Est GFR ( Amer) > 60 Est GFR (Non-Af Amer) > 60 BUN/Creatinine Ratio 10 Glucose 113 H Calculated Osmolality 270 L Calcium 8.6 - ABG Interpretation ABG results: PT/INR, D-dimer D-Dimer 1503 ng/mLFEU (0-500) H 01/04/17 16:05
--- NOTE | 2017-01-08 10:12 | Discharge Summary ---
<Jolynn Bruno - Last Filed: 01/08/17 10:08> Date of Encounter: 01/08/17 Time of Encounter: 10:08 - Discharge Diagnosis (1) Recurrent falls Priority: Primary Status: Acute (2) Mental status, decreased Priority: Primary Status: Resolved (3) Back pain Priority: Secondary Status: Resolved Qualifiers: Back pain location: low back pain Chronicity: acute Back pain laterality : midline Sciatica presence: without sciatica Qualified Code(s): M54.5 - Low back pain (4) Nicotine dependence Priority: Secondary Status: Acute Qualifiers: Nicotine product type: cigarettes Substance use status: uncomplicated Qualified Code(s): F17.210 - Nicotine dependence, cigarettes, uncomplicated (5) Lung cancer Priority: Secondary Status: Acute Qualifiers: Laterality: right Lung location: upper lobe of lung Qualified Code(s): C34.11 - Malignant neoplasm of upper lobe, right bronchus or lung (6) COPD (chronic obstructive pulmonary disease) Priority: Secondary Status: Chronic Qualifiers: COPD type: unspecified COPD Qualified Code(s): J44.9 - Chronic obstructive pulmonary disease, unspecified (7) HTN (hypertension) Priority: Secondary Status: Chronic Qualifiers: Hypertension type: essential hypertension Qualified Code(s): I10 - Essential (primary) hypertension - Discharge Medications Home Medications: Albuterol Sulfate [Albuterol Inhaler] 2 puff IH Q4-6H PRN 06/20/15 [History] Losartan [Cozaar] 25 mg PO DAILY 06/20/15 [History] Ipratropium/Albuterol Neb [Duoneb] 3 ml IH Q6HR PRN 12/23/16 [History] Budesonide/Formoterol 160/4.5 [Symbicort 160/4.5] 1 puff IH BID 01/05/17 [ History] Guaifenesin [Mucinex] 600 mg PO Q12H PRN 01/05/17 [History] Allergies/Adverse Reactions: Allergies Amoxicillin Allergy (Verified 12/23/16 08:32) Difficulty Swallowing RASH Procedures/tests Complete & Pending: Procedures Performed prior 72 hours Category Date Time Status CT abdomen w iv no oral [CT] Routine Cat Scan 01/06/17 18:56 Completed Date of admission: 01/05/17 14:14 Primary care physician: Riddhi Sosa CNP Consults: 01/05/17 14:23 Consult to Oncology Hematology [CONS] Routine Consulting Provider: Sonya Ferguson Reason for Consult: Non-small cell lung cancer, here with possible postobstructive pna. Not a PET/MRI candidate due to severe anxiety. Eval for stage IV whether to pursue palliative chemo Call Completed: Yes 01/05/17 14:32 Consult to Palliative Care [CONS] Routine Comment: Consulting Provider: Palliative Care Bridgette Reason for Consult: eval candidacy for palliative chemo if it aligns with her goals of care. Call Completed: Yes Discharging clinician: Jolynn Bruno Anticipated date of discharge: 01/08/17 - Patient Status Disposition: Transfer SNF Condition: Fair Functional capacity at discharge: uses cane/walker Overall status at discharge: patient is not back to baseline - Discharge Instructions Instructions: Chronic Obstructive Pulmonary Disease (DC) Follow Up With: Riddhi Sosa CNP [Primary Care Provider] - - Diet and Activity Activity: ambulate only with your walker Diet: regular diet Interval History: Patient seen and examined. Mental status is back to baseline. Agreeable for discharge. Hospital course: Ms. Aldridge is a 76 year old female past medical history of hypertension, COPD, and lung cancer who presented with recurrent falls. She had fallen 6 times the past 2 days prior to admission. She was evaluated by physical therapy and occupational therapy who recommended SNF/ECF on discharge. She is being discharged to [facility]. The patient's oncologist, Dr. Ferguson, offered palliative chemotherapy/radiation but the patient and her family have declined at this time due to limited benefit. Palliative was consulted to discuss goals of care. At this time the patient would like to pursue rehabilitation and is not interested in hospice; her a few days after becoming hospice. - Time Spent with Patient Total time spent providing and/or coordinating discharge services: - Constitutional Vitals: Temp Pulse Resp BP Pulse Ox 97.6 F 88 16 170/85 94 01/08/17 07:54 01/08/17 07:54 01/08/17 07:54 01/08/17 07:54 01/08/17 08:36 General appearance: Present: A&O X 3, no acute distress, answers questions appropriately - Head Head exam: Present: atraumatic, normocephalic - Eye Eye exam: Present: PERRL, conjuntiva pink, sclera anicteric Pupils: Present: PERRL - ENT ENT exam: Present: mucous membranes moist - Neck Neck exam general surgery: Present: supple - Respiratory Respiratory exam: Present: CTAB - Cardiovascular Cardiovascular exam: Present: RRR, +S1, +S2 - GI/Abdominal GI/Abdominal exam: Present: soft. Absent: tenderness - Extremities Exam Extremities exam: Present: warm. Absent: calf tenderness, cyanotic, pedal edema - Neurological Exam Neurological exam: Present: CN II-XII intact, oriented X3, no focal deficits. Absent: pronater drift, facial droop, speech deficit - Skin Skin exam: Present: dry, intact - VTE Documentation of Mechanical Device: Intermittent pneumatic compression device <Oscar Marcial P - Last Filed: 01/08/17 18:10> Date of Encounter: 01/08/17 Procedures/tests Complete & Pending: Procedures Performed prior 72 hours Category Date Time Status CT abdomen w iv no oral [CT] Routine Cat Scan 01/06/17 18:56 Completed Date of admission: 01/05/17 14:14 Primary care physician: Riddhi Sosa CNP Consults: 01/05/17 14:23 Consult to Oncology Hematology [CONS] Routine Consulting Provider: Sonya Ferguson Reason for Consult: Non-small cell lung cancer, here with possible postobstructive pna. Not a PET/MRI candidate due to severe anxiety. Eval for stage IV whether to pursue palliative chemo Call Completed: Yes 01/05/17 14:32 Consult to Palliative Care [CONS] Routine Comment: Consulting Provider: Palliative Care Bridgette Reason for Consult: eval candidacy for palliative chemo if it aligns with her goals of care. Call Completed: Yes Hospital course: Ms. Aldridge is a 76 year old female - Time Spent with Patient Total time spent providing and/or coordinating discharge services: - Constitutional Vitals: Temp Pulse Resp BP Pulse Ox 97.6 F 88 16 170/85 94 01/08/17 07:54 01/08/17 07:54 01/08/17 07:54 01/08/17 07:54 01/08/17 08:36 - Attending Attestation I examined this patient and my medical decision-making was reviewed with the CIRCUIT MANAGER/PA/Advanced Practice Nurse/Resident Physician. I agree with the documented findings, disposition and treatment plan as described except to the extent set forth below.
--- NOTE | 2017-01-08 10:30 | Physician Discharge Referral ---
<Jolynn Bruno - Last Filed: 01/08/17 10:28> ExtendedCare Referral Info Transfer To: [facility] Provider in Charge: Oscar Marcial Provider in Charge after Transfer: PCP Institutional Level of Care: Skilled - Diagnosis (1) Recurrent falls Priority: Primary Status: Acute (2) Mental status, decreased Priority: Secondary Status: Resolved (3) Back pain Priority: Secondary Status: Resolved (4) Nicotine dependence Priority: Secondary Status: Acute (5) Lung cancer Priority: Secondary Status: Acute (6) COPD (chronic obstructive pulmonary disease) Priority: Secondary Status: Chronic (7) HTN (hypertension) Priority: Secondary Status: Chronic - Transfer Medications Home Medications: Albuterol Sulfate [Albuterol Inhaler] 2 puff IH Q4-6H PRN 06/20/15 [History] Losartan [Cozaar] 25 mg PO DAILY 06/20/15 [History] Ipratropium/Albuterol Neb [Duoneb] 3 ml IH Q6HR PRN 12/23/16 [History] Budesonide/Formoterol 160/4.5 [Symbicort 160/4.5] 1 puff IH BID 01/05/17 [ History] Guaifenesin [Mucinex] 600 mg PO Q12H PRN 01/05/17 [History] Allergies/Adverse Reactions: Allergies Amoxicillin Allergy (Verified 12/23/16 08:32) Difficulty Swallowing RASH - Respiratory Orders Smoking Cessation: Smoking cessation has been advised. For more information, call the [employer] at [phone]-JSNA-NOW. - Advance Directives Code Status: DNR-Arrest/Don't Intubate - Mobility Orders Chair, Ambulate (With therapy) - Rehabiliation Orders Rehab Potential: Fair Rehab Orders: Evaluation for Physical Therapy, Evaluation for Occupational Therapy - Diet Orders Regular CERTIFICATION: I certify that the transfer of the above named patient to an Extended Care Facility is necessary for the continuing treatment of the diagnosis listed. The above information is true and accurate reflection of patient's current condition. Confidential - Redisclosure prohibited without a patient's written consent. <Oscar Marcial P - Last Filed: 01/08/17 18:11> - Respiratory Orders Smoking Cessation: Smoking cessation has been advised. For more information, call the [place] [employer] [facility] at 5-704-DIZS-NOW. CERTIFICATION: I certify that the transfer of the above named patient to an Extended Care Facility is necessary for the continuing treatment of the diagnosis listed. The above information is true and accurate reflection of patient's current condition. Confidential - Redisclosure prohibited without a patient's written consent.
== END 2017-01-08 14:05 | DRG 181 ==
LOC: 2NENU 15:04 → EMEROO 15:04 → 2NENU 19:41
PROVIDERS: ADMIT Internal Medicine; ATTEND Internal Medicine

== ENCOUNTER 2017-02-10 15:55 | Inpatient (IN) ==
--- NOTE | 2017-02-10 16:05 | Emergency Department Note ---
Disposition Clinical Impression: Altered mental status Disposition: Admitted As Inpatient Condition: Fair General Adult HPI - General Chief complaint: ED Altered Mental Status Stated complaint: altered mental status, groin pain Time Seen by Provider: 02/10/17 16:01 - Related Data Home Medications Medication Instructions Recorded Confirmed Albuterol Sulfate [Albuterol 2 puff IH Q4H PRN 06/20/15 02/10/17 Inhaler] Losartan [Cozaar] 25 mg PO DAILY 06/20/15 02/10/17 Guaifenesin [Mucinex] 600 mg PO Q12H PRN 01/05/17 02/10/17 Acetaminophen [Tylenol] 650 mg PO Q6H PRN 02/10/17 02/10/17 Fluticasone/Vilanterol [Breo 1 each IH DAILY 02/10/17 02/10/17 Ellipta 100-25 Mcg INH] HYDROcodone/Acet 5/325 mg [[place] 1 tab PO Q6H 02/10/17 02/10/17 5-325 mg] Haloperidol 0.5 mg PO TID 02/10/17 02/10/17 Lactose-Reduced Food [Ensure Plus] 1 bottle PO TID 02/10/17 02/10/17 Melatonin 3 mg PO HS 02/10/17 02/10/17 Polyethylene Glycol 3350 17 gm PO DAILY 02/10/17 02/10/17 [Smoothlax] Sennosides/Docusate Sodium [Senna 1 each PO BID 02/10/17 02/10/17 Plus] hydrALAZINE [HydrALAZINE] 5 mg PO DAILY 02/10/17 02/10/17 Allergies Allergy/AdvReac Type Severity Reaction Status Date / Time Amoxicillin Allergy Difficulty Verified 12/23/16 08:32 Swallowing Past Medical History - Past Medical History Medical history: Reports: cancer, COPD, hypertension Surgical history: Reports: cataract Psychiatric history: Reports: no psych history COLLAR FUSER history: Reports: non-contributory - Social History Smoking Status: Current every day smoker Smokeless Tobacco Status: No Alcohol use: Reports: none Drug use: Reports: none Course Vital Signs Temperature 98.5 F 02/10/17 16:03 Pulse Rate 83 02/10/17 16:03 Respiratory Rate 22 02/10/17 16:03 Blood Pressure 194/92 02/10/17 16:03 O2 Sat by Pulse Oximetry 96 02/10/17 16:03 Temperature 98.3 F 02/11/17 08:23 Pulse Rate 77 02/11/17 08:23 Respiratory Rate 16 02/11/17 08:23 Blood Pressure 185/80 02/11/17 08:23 O2 Sat by Pulse Oximetry 96 02/11/17 08:23 Oxygen Delivery Oxygen Delivery Room Air Medical Decision Making - Lab Data Result diagrams: 02/11/17 05:47 02/11/17 05:47 Lab Results 02/10/17 02/10/17 02/10/17 Range/Units 16:32 16:42 16:42 WBC 4.7 (4.3-11.1) K/mcL RBC 4.67 (3.82-4.97) M/mcL Hgb 11.9 (11.5-15.4) g/dL Hct 38.0 (35.3-44.9) % MCV 81.4 L (83.0-100.0) fL MCH 25.5 L (28.0-33.3) pg MCHC 31.3 L (31.6-35.5) g/dL RDW 13.9 (11.5-14.5) % Plt Count 359 (140-400) K/mcL MPV 9.3 L (9.4-12.4) fL Immature Gran % 0.2 (0-4) % Seg Neutrophils % 52.4 % Lymphocytes % 31.1 % Monocytes % 7.0 % Eosinophils % 8.5 % Basophils % 0.8 % Neutrophils # 2.5 (1.6-8.9) K/mcL Lymphocytes # 1.5 (0.6-4.6) K/mcL Monocytes # 0.3 (0.0-1.3) K/mcL Eosinophils # 0.4 (0.0-0.6) K/mcL Basophils # 0.0 (0.0-0.2) K/mcL Sodium 142 (136-145) mEq/L Potassium 3.3 L (3.5-4.5) mEq/L Chloride 102 (98-109) mEq/L Carbon Dioxide 30 H (19-29) mEq/L BUN 16 (7-20) mg/dL Creatinine 0.67 (0.57-1.11) mg/dL Est GFR ( Amer) > 60 (> 60) Est GFR (Non-Af Amer) > 60 (> 60) BUN/Creatinine Ratio 24 (6-26) Glucose 96 (70-99) mg/dL POC Glucose 88 (58-89) Calculated Osmolality 295 (280-300) Calcium 9.9 (8.6-10.8) mg/dL Total Bilirubin 0.5 (0.2-1.2) mg/dL Direct Bilirubin 0.2 (0.0-0.5) mg/dL Indirect Bilirubin 0.3 (0.0-1.2) mg/dL AST 15 (5-34) Units/L ALT 11 (0-55) Units/L Alkaline Phosphatase 111 (38-126) Units/L Ammonia (18-72) mcmol/L Troponin I (0-0.03) ng/mL Serum Total Protein 7.3 (6.0-8.3) g/dL Albumin 3.6 (3.5-5.0) g/dL Globulin 3.7 H (2.4-3.5) g/dL Albumin/Globulin Ratio 1.0 L (1.1-2.2) TSH 1.481 (0.350-4.840) mcIU/mL Urine Color (Yellow) Urine Clarity (Clear) Urine pH (5.0-8.0) pH Units Ur Specific [place] (1.010-1.025) Urine Protein (Neg-Trace) mg/dL Urine Glucose (UA) (Normal) mg/dL Urine Ketones (Negative) mg/dL Urine Blood (Negative) Urine Nitrite (Negative) Urine Bilirubin (Negative) Urine Urobilinogen (Normal) mg/dL Ur Leukocyte Esterase (Negative) Ur Culture Indicated? (NO) Urine Opiates Screen (Tbvpgq=459) ng/mL Ur Barbiturates Screen (Imdimh=686) ng/mL Ur Phencyclidine Scrn (Cutoff=25) ng/mL Ur Amphetamines Screen (Fnihrj=4029) ng/mL U Benzodiazepines Scrn (Hvpvou=328) ng/mL Urine Cocaine Screen (Cutoff= 300) ng/mL U Marijuana (THC) Screen (Cutoff = 50) ng/mL Ethyl Alcohol < 10 (0-10) mg/dL 02/10/17 02/10/17 02/10/17 Range/Units 16:42 16:42 16:49 WBC (4.3-11.1) K/mcL RBC (3.82-4.97) M/mcL Hgb (11.5-15.4) g/dL Hct (35.3-44.9) % MCV (83.0-100.0) fL MCH (28.0-33.3) pg MCHC (31.6-35.5) g/dL RDW (11.5-14.5) % Plt Count (140-400) K/mcL MPV (9.4-12.4) fL Immature Gran % (0-4) % Seg Neutrophils % % Lymphocytes % % Monocytes % % Eosinophils % % Basophils % % Neutrophils # (1.6-8.9) K/mcL Lymphocytes # (0.6-4.6) K/mcL Monocytes # (0.0-1.3) K/mcL Eosinophils # (0.0-0.6) K/mcL Basophils # (0.0-0.2) K/mcL Sodium (136-145) mEq/L Potassium (3.5-4.5) mEq/L Chloride (98-109) mEq/L Carbon Dioxide (19-29) mEq/L BUN (7-20) mg/dL Creatinine (0.57-1.11) mg/dL Est GFR ( Amer) (> 60) Est GFR (Non-Af Amer) (> 60) BUN/Creatinine Ratio (6-26) Glucose (70-99) mg/dL POC Glucose (58-89) Calculated Osmolality (280-300) Calcium (8.6-10.8) mg/dL Total Bilirubin (0.2-1.2) mg/dL Direct Bilirubin (0.0-0.5) mg/dL Indirect Bilirubin (0.0-1.2) mg/dL AST (5-34) Units/L ALT (0-55) Units/L Alkaline Phosphatase (38-126) Units/L Ammonia 18 (18-72) mcmol/L Troponin I 0.01 (0-0.03) ng/mL Serum Total Protein (6.0-8.3) g/dL Albumin (3.5-5.0) g/dL Globulin (2.4-3.5) g/dL Albumin/Globulin Ratio (1.1-2.2) TSH (0.350-4.840) mcIU/mL Urine Color Yellow (Yellow) Urine Clarity Clear (Clear) Urine pH 6.5 (5.0-8.0) pH Units Ur Specific [place] 1.026 H (1.010-1.025) Urine Protein Negative (Neg-Trace) mg/dL Urine Glucose (UA) Normal (Normal) mg/dL Urine Ketones Negative (Negative) mg/dL Urine Blood Negative (Negative) Urine Nitrite Negative (Negative) Urine Bilirubin Small H (Negative) Urine Urobilinogen Normal (Normal) mg/dL Ur Leukocyte Esterase Negative (Negative) Ur Culture Indicated? NO (NO) Urine Opiates Screen (Rddmal=609) ng/mL Ur Barbiturates Screen (Buwgjn=687) ng/mL Ur Phencyclidine Scrn (Cutoff=25) ng/mL Ur Amphetamines Screen (Gnovwa=0383) ng/mL U Benzodiazepines Scrn (Qzcgfa=720) ng/mL Urine Cocaine Screen (Cutoff= 300) ng/mL U Marijuana (THC) Screen (Cutoff = 50) ng/mL Ethyl Alcohol (0-10) mg/dL 02/10/17 Range/Units 16:49 WBC (4.3-11.1) K/mcL RBC (3.82-4.97) M/mcL Hgb (11.5-15.4) g/dL Hct (35.3-44.9) % MCV (83.0-100.0) fL MCH (28.0-33.3) pg MCHC (31.6-35.5) g/dL RDW (11.5-14.5) % Plt Count (140-400) K/mcL MPV (9.4-12.4) fL Immature Gran % (0-4) % Seg Neutrophils % % Lymphocytes % % Monocytes % % Eosinophils % % Basophils % % Neutrophils # (1.6-8.9) K/mcL Lymphocytes # (0.6-4.6) K/mcL Monocytes # (0.0-1.3) K/mcL Eosinophils # (0.0-0.6) K/mcL Basophils # (0.0-0.2) K/mcL Sodium (136-145) mEq/L Potassium (3.5-4.5) mEq/L Chloride (98-109) mEq/L Carbon Dioxide (19-29) mEq/L BUN (7-20) mg/dL Creatinine (0.57-1.11) mg/dL Est GFR ( Amer) (> 60) Est GFR (Non-Af Amer) (> 60) BUN/Creatinine Ratio (6-26) Glucose (70-99) mg/dL POC Glucose (58-89) Calculated Osmolality (280-300) Calcium (8.6-10.8) mg/dL Total Bilirubin (0.2-1.2) mg/dL Direct Bilirubin (0.0-0.5) mg/dL Indirect Bilirubin (0.0-1.2) mg/dL AST (5-34) Units/L ALT (0-55) Units/L Alkaline Phosphatase (38-126) Units/L Ammonia (18-72) mcmol/L Troponin I (0-0.03) ng/mL Serum Total Protein (6.0-8.3) g/dL Albumin (3.5-5.0) g/dL Globulin (2.4-3.5) g/dL Albumin/Globulin Ratio (1.1-2.2) TSH (0.350-4.840) mcIU/mL Urine Color (Yellow) Urine Clarity (Clear) Urine pH (5.0-8.0) pH Units Ur Specific [place] (1.010-1.025) Urine Protein (Neg-Trace) mg/dL Urine Glucose (UA) (Normal) mg/dL Urine Ketones (Negative) mg/dL Urine Blood (Negative) Urine Nitrite (Negative) Urine Bilirubin (Negative) Urine Urobilinogen (Normal) mg/dL Ur Leukocyte Esterase (Negative) Ur Culture Indicated? (NO) Urine Opiates Screen Positive H (Dbfguj=094) ng/mL Ur Barbiturates Screen Negative (Zckosz=518) ng/mL Ur Phencyclidine Scrn Negative (Cutoff=25) ng/mL Ur Amphetamines Screen Negative (Xrckrw=5917) ng/mL U Benzodiazepines Scrn Negative (Dmsgzw=743) ng/mL Urine Cocaine Screen Negative (Cutoff= 300) ng/mL U Marijuana (THC) Screen Negative (Cutoff = 50) ng/mL Ethyl Alcohol (0-10) mg/dL Attestation Statement - Attestation Attestation: I examined this patient and my medical decision-making was reviewed with the GUEST SPECIALIST/PA/Advanced Practice Nurse/Resident Physician. I agree with the documented findings, disposition and treatment plan as described except to the extent set forth below. Face to face time provided Patient has a history of advanced stage IV lung cancer. She was sent from the cancer center due to increased confusion and changes in mental status. Information is obtained from her daughter who is the primary historian. The patient is intermittently confused at baseline and nonambulatory. She is not currently getting any chemotherapy or radiation. She appears in no acute distress on exam. Home medication list reviewed by me
--- NOTE | 2017-02-10 16:22 | Emergency Department Note ---
Disposition Clinical Impression: Altered mental status Qualifiers: Altered mental status type: unspecified Qualified Code(s): R41.82 - Altered mental status, unspecified Disposition: Admitted As Inpatient Condition: Fair Referrals: Riddhi Sosa CNP [Primary Care Provider] - Forms: ED Satisfaction Letter Altered Mental Status HPI - General Chief Complaint: ED Altered Mental Status Stated Complaint: altered mental status, groin pain Time Seen by Provider: 02/10/17 16:01 Source: patient Mode of arrival: EMS Limitations: altered mental status Nursing Notes Reviewed: Yes Vital Signs Reviewed: Yes - History of Present Illness HPI Narrative: 76-year-old female history of COPD, lung cancer currently not on chemotherapy who presents to the ER from her oncologist office with a chief complaint of altered mental status. Patient is accompanied by family who relayed the majority of the history. Family reports that at the nursing facility she has had worsening mental status over the last 2 months. She states that during that time she has also had episodes of stiffness and also with jerking of her extremities. No history of seizure disorder. She also reports that during this time she has started hallucinating and screaming intermittently. The patient was seen today by her oncologist and there was concern there that perhaps she has metastasis from her lung cancer causing her altered mental status and sent her here for workup. The patient is alert and oriented 2 and pleasantly confused in the room. She moves all extremities. No other complaints. MD complaint: altered mental status Onset (ago): week(s) Pain Severity: none Consistency of Symptoms: getting worse Context: other (History of lung cancer) Associated symptoms: Reports: denies other symptoms - Related Data Home Medications Medication Instructions Recorded Confirmed Albuterol Sulfate [Albuterol 2 puff IH Q4-6H PRN 06/20/15 01/05/17 Inhaler] Losartan [Cozaar] 25 mg PO DAILY 06/20/15 01/05/17 Ipratropium/Albuterol Neb [Duoneb] 3 ml IH Q6HR PRN 12/23/16 01/05/17 Budesonide/Formoterol 160/4.5 1 puff IH BID 01/05/17 01/05/17 [Symbicort 160/4.5] Guaifenesin [Mucinex] 600 mg PO Q12H PRN 01/05/17 01/05/17 Allergies Allergy/AdvReac Type Severity Reaction Status Date / Time Amoxicillin Allergy Difficulty Verified 12/23/16 08:32 Swallowing All systems ED: reviewed and negative except as stated. Constitutional: Denies: fever Cardiovascular: Denies: chest pain Respiratory: Denies: cough, dyspnea Gastrointestinal: Denies: nausea, vomiting, diarrhea Neurological: Reports: weakness. Denies: headache Past Medical History - Past Medical History Attestation: Yes The following information was validated with the patient. Source: patient, obtained from family Medical history: Reports: cancer, COPD, hypertension Surgical history: Reports: cataract Psychiatric history: Reports: no psych history DATA CLERK history: Reports: non-contributory - Social History Smoking Status: Current every day smoker Smokeless Tobacco Status: No Alcohol use: Reports: none Drug use: Reports: none Physical Exam - General Limitations: altered mental status General appearance: alert, in no apparent distress - Head Head exam: atraumatic, normocephalic, normal inspection - Eye Eye exam: Present: normal appearance, PERRL, EOMI - ENT ENT exam: normal exam - Neck Neck exam: Present: normal inspection, full ROM - Chest Chest inspection: Present: normal inspection, symmetric chest wall rise - Respiratory Respiratory exam: Present: normal lung sounds bilaterally - Cardiovascular Cardiovascular exam: Present: regular rate, normal rhythm, irregular rhythm - Abdominal Exam Abdominal exam: Present: soft, Non-Tender. Absent: tenderness - Extremities Exam Extremities exam: Present: normal inspection, full ROM - Expanded Upper Extremity Exam Shoulder exam: Present: normal inspection, full ROM Arm exam: Present: normal inspection, full ROM Elbow exam: Present: normal inspection, full ROM Forearm/Wrist exam: Present: normal inspection, full ROM Hand exam: Present: normal inspection, full ROM Vascular exam: Normal: capillary refill, radial pulse - Expanded Lower Extremity Exam Hip/Pelvis exam: Present: normal inspection, full ROM Upper leg exam: Present: normal inspection, full ROM Knee exam: Present: normal inspection, full ROM Lower leg exam: Present: normal inspection, full ROM Ankle exam: Present: normal inspection, full ROM Foot/toe exam: Present: normal inspection, full ROM Neurovascular/Tendon exam: Absent: motor deficit, sensory deficit - Neurological Exam Neurological exam: Present: alert, other (Unable to fully assess due to patient noncompliance.). Absent: oriented X3 (Oriented 2) - Expanded Neurological Exam Patient oriented to: Present: person, place Speech: Present: fluid speech Cranial nerves: EOM function (II, III, IV, ): Normal, spinal accessory function (XI): Normal Motor strength - LUE: 4/5 Motor strength - RUE: 4/5 Motor strength - LLE: 4/5 Motor strength - RLE: 4/5 Upper motor neuron exam: joe neglect: Absent bilaterally Coma Scale Eye Opening: Spontaneous Coma Scale Motor Response: Obeys Commands Coma Scale Verbal Response: Confused Coma Scale Total: 14 - Psychiatric Psychiatric exam: Present: normal affect - Skin Skin exam: Present: warm, dry, intact Course Course Narrative: Patient seen and examined. Vital signs reviewed. Nonfocal exam however limited due to patient compliance. We will proceed with a CT scan of the head as well as labs and urinalysis for reversible causes of the potential metabolic encephalopathy. I discussed with the patient's family at bedside about wishes. She is currently not being treated for lung cancer and declined chemotherapy back in November whenever was diagnosed. She also states that the patient's wishes to decline any heroic measures for CODE STATUS including compressions, shock, medications or CPR. - Reevaluation(s) Reevaluation #1: I discussed the results of imaging and lab work with the patient and family present. Chest x-ray does show worsening of her malignancy. CT scan shows age- related changes of the head. Family is concerned because of the stiffness and rigidity she is experiencing at the facility as well as worsening altered mental status and behavioral changes. They are concerned to taking her back to the facility and would rather be admitted if possible. We will admit the patient for altered mental status for further workup. Vital Signs Temperature 98.5 F 02/10/17 16:03 Pulse Rate 83 02/10/17 16:03 Respiratory Rate 22 02/10/17 16:03 Blood Pressure 194/92 02/10/17 16:03 O2 Sat by Pulse Oximetry 96 02/10/17 16:03 Temperature 98.5 F 02/10/17 16:03 Pulse Rate 78 02/10/17 16:50 Respiratory Rate 20 02/10/17 16:50 Blood Pressure 191/98 02/10/17 16:50 O2 Sat by Pulse Oximetry 96 02/10/17 16:50 Oxygen Delivery Oxygen Delivery Room Air Altered Mental Status - MDM Narrative Medical decision making narrative: 68-year-old female presents to the ER from oncology office due to concern for altered mental status. Patient has a history of lung cancer and is currently not on chemotherapy. Her family reports over the last 2 months that she has had worsening aggression and behavioral changes as well as episodes of stiffness at the nursing facility with concern for possible seizure-like activity. Her labs and imaging here showed no acute abnormalities to explain her worsening altered mental status. Patient will be admitted to the hospital for further management. - Lab Data Lab results reviewed: Yes I reviewed the patient's lab results. Result diagrams: 02/10/17 16:42 02/10/17 16:42 Lab Results 02/10/17 02/10/17 02/10/17 Range/Units 16:32 16:42 16:42 WBC 4.7 (4.3-11.1) K/mcL RBC 4.67 (3.82-4.97) M/mcL Hgb 11.9 (11.5-15.4) g/dL Hct 38.0 (35.3-44.9) % MCV 81.4 L (83.0-100.0) fL MCH 25.5 L (28.0-33.3) pg MCHC 31.3 L (31.6-35.5) g/dL RDW 13.9 (11.5-14.5) % Plt Count 359 (140-400) K/mcL MPV 9.3 L (9.4-12.4) fL Immature Gran % 0.2 (0-4) % Seg Neutrophils % 52.4 % Lymphocytes % 31.1 % Monocytes % 7.0 % Eosinophils % 8.5 % Basophils % 0.8 % Neutrophils # 2.5 (1.6-8.9) K/mcL Lymphocytes # 1.5 (0.6-4.6) K/mcL Monocytes # 0.3 (0.0-1.3) K/mcL Eosinophils # 0.4 (0.0-0.6) K/mcL Basophils # 0.0 (0.0-0.2) K/mcL Sodium 142 (136-145) mEq/L Potassium 3.3 L (3.5-4.5) mEq/L Chloride 102 (98-109) mEq/L Carbon Dioxide 30 H (19-29) mEq/L BUN 16 (7-20) mg/dL Creatinine 0.67 (0.57-1.11) mg/dL Est GFR ( Amer) > 60 (> 60) Est GFR (Non-Af Amer) > 60 (> 60) BUN/Creatinine Ratio 24 (6-26) Glucose 96 (70-99) mg/dL POC Glucose 88 (58-89) Calculated Osmolality 295 (280-300) Calcium 9.9 (8.6-10.8) mg/dL Total Bilirubin 0.5 (0.2-1.2) mg/dL Direct Bilirubin 0.2 (0.0-0.5) mg/dL Indirect Bilirubin 0.3 (0.0-1.2) mg/dL AST 15 (5-34) Units/L ALT 11 (0-55) Units/L Alkaline Phosphatase 111 (38-126) Units/L Ammonia (18-72) mcmol/L Troponin I (0-0.03) ng/mL Serum Total Protein 7.3 (6.0-8.3) g/dL Albumin 3.6 (3.5-5.0) g/dL Globulin 3.7 H (2.4-3.5) g/dL Albumin/Globulin Ratio 1.0 L (1.1-2.2) TSH 1.481 (0.350-4.840) mcIU/mL Urine Color (Yellow) Urine Clarity (Clear) Urine pH (5.0-8.0) pH Units Ur Specific Horseheads (1.010-1.025) Urine Protein (Neg-Trace) mg/dL Urine Glucose (UA) (Normal) mg/dL Urine Ketones (Negative) mg/dL Urine Blood (Negative) Urine Nitrite (Negative) Urine Bilirubin (Negative) Urine Urobilinogen (Normal) mg/dL Ur Leukocyte Esterase (Negative) Ur Culture Indicated? (NO) Urine Opiates Screen (Jetdyw=345) ng/mL Ur Barbiturates Screen (Kxgmwl=320) ng/mL Ur Phencyclidine Scrn (Cutoff=25) ng/mL Ur Amphetamines Screen (Ebsruc=1993) ng/mL U Benzodiazepines Scrn (Wjlbvx=080) ng/mL Urine Cocaine Screen (Cutoff= 300) ng/mL U Marijuana (THC) Screen (Cutoff = 50) ng/mL Ethyl Alcohol < 10 (0-10) mg/dL 02/10/17 02/10/1702/10/17 Range/Units 16:42 16:42 16:49 WBC (4.3-11.1) K/mcL RBC (3.82-4.97) M/mcL Hgb (11.5-15.4) g/dL Hct (35.3-44.9) % MCV (83.0-100.0) fL MCH (28.0-33.3) pg MCHC (31.6-35.5) g/dL RDW (11.5-14.5) % Plt Count (140-400) K/mcL MPV (9.4-12.4) fL Immature Gran % (0-4) % Seg Neutrophils % % Lymphocytes % % Monocytes % % Eosinophils % % Basophils % % Neutrophils # (1.6-8.9) K/mcL Lymphocytes # (0.6-4.6) K/mcL Monocytes # (0.0-1.3) K/mcL Eosinophils # (0.0-0.6) K/mcL Basophils # (0.0-0.2) K/mcL Sodium (136-145) mEq/L Potassium (3.5-4.5) mEq/L Chloride (98-109) mEq/L Carbon Dioxide (19-29) mEq/L BUN (7-20) mg/dL Creatinine (0.57-1.11) mg/dL Est GFR ( Amer) (> 60) Est GFR (Non-Af Amer) (> 60) BUN/Creatinine Ratio (6-26) Glucose (70-99) mg/dL POC Glucose (58-89) Calculated Osmolality (280-300) Calcium (8.6-10.8) mg/dL Total Bilirubin (0.2-1.2) mg/dL Direct Bilirubin (0.0-0.5) mg/dL Indirect Bilirubin (0.0-1.2) mg/dL AST (5-34) Units/L ALT (0-55) Units/L Alkaline Phosphatase (38-126) Units/L Ammonia 18 (18-72) mcmol/L Troponin I 0.01 (0-0.03) ng/mL Serum Total Protein (6.0-8.3) g/dL Albumin (3.5-5.0) g/dL Globulin (2.4-3.5) g/dL Albumin/Globulin Ratio (1.1-2.2) TSH (0.350-4.840) mcIU/mL Urine Color Yellow (Yellow) Urine Clarity Clear (Clear) Urine pH 6.5 (5.0-8.0) pH Units Ur Specific Horse[place] 1.026 H (1.010-1.025) Urine Protein Negative (Neg-Trace) mg/dL Urine Glucose (UA) Normal (Normal) mg/dL Urine Ketones Negative (Negative) mg/dL Urine Blood Negative (Negative) Urine Nitrite Negative (Negative) Urine Bilirubin Small H (Negative) Urine Urobilinogen Normal (Normal) mg/dL Ur Leukocyte Esterase Negative (Negative) Ur Culture Indicated? NO (NO) Urine Opiates Screen (Gorbqm=955) ng/mL Ur Barbiturates Screen (Ywtcdu=998) ng/mL Ur Phencyclidine Scrn (Cutoff=25) ng/mL Ur Amphetamines Screen (Ysqouy=2490) ng/mL U Benzodiazepines Scrn (Kpriko=114) ng/mL Urine Cocaine Screen (Cutoff= 300) ng/mL U Marijuana (THC) Screen (Cutoff = 50) ng/mL Ethyl Alcohol (0-10) mg/dL 02/10/17 Range/Units 16:49 WBC (4.3-11.1) K/mcL RBC (3.82-4.97) M/mcL Hgb (11.5-15.4) g/dL Hct (35.3-44.9) % MCV (83.0-100.0) fL MCH (28.0-33.3) pg MCHC (31.6-35.5) g/dL RDW (11.5-14.5) % Plt Count (140-400) K/mcL MPV (9.4-12.4) fL Immature Gran % (0-4) % Seg Neutrophils % % Lymphocytes % % Monocytes % % Eosinophils % % Basophils % % Neutrophils # (1.6-8.9) K/mcL Lymphocytes # (0.6-4.6) K/mcL Monocytes # (0.0-1.3) K/mcL Eosinophils # (0.0-0.6) K/mcL Basophils # (0.0-0.2) K/mcL Sodium (136-145) mEq/L Potassium (3.5-4.5) mEq/L Chloride (98-109) mEq/L Carbon Dioxide (19-29) mEq/L BUN (7-20) mg/dL Creatinine (0.57-1.11) mg/dL Est GFR ( Amer) (> 60) Est GFR (Non-Af Amer) (> 60) BUN/Creatinine Ratio (6-26) Glucose (70-99) mg/dL POC Glucose (58-89) Calculated Osmolality (280-300) Calcium (8.6-10.8) mg/dL Total Bilirubin (0.2-1.2) mg/dL Direct Bilirubin (0.0-0.5) mg/dL Indirect Bilirubin (0.0-1.2) mg/dL AST (5-34) Units/L ALT (0-55) Units/L Alkaline Phosphatase (38-126) Units/L Ammonia (18-72) mcmol/L Troponin I (0-0.03) ng/mL Serum Total Protein (6.0-8.3) g/dL Albumin (3.5-5.0) g/dL Globulin (2.4-3.5) g/dL Albumin/Globulin Ratio (1.1-2.2) TSH (0.350-4.840) mcIU/mL Urine Color (Yellow) Urine Clarity (Clear) Urine pH (5.0-8.0) pH Units Ur Specific Horse[place] (1.010-1.025) Urine Protein (Neg-Trace) mg/dL Urine Glucose (UA) (Normal) mg/dL Urine Ketones (Negative) mg/dL Urine Blood (Negative) Urine Nitrite (Negative) Urine Bilirubin (Negative) Urine Urobilinogen (Normal) mg/dL Ur Leukocyte Esterase (Negative) Ur Culture Indicated? (NO) Urine Opiates Screen Positive H (Plcrcc=990) ng/mL Ur Barbiturates Screen Negative (Shodhm=371) ng/mL Ur Phencyclidine Scrn Negative (Cutoff=25) ng/mL Ur Amphetamines Screen Negative (Bcpsvg=0641) ng/mL U Benzodiazepines Scrn Negative (Hxrvfb=910) ng/mL Urine Cocaine Screen Negative (Cutoff= 300) ng/mL U Marijuana (THC) Screen Negative (Cutoff = 50) ng/mL Ethyl Alcohol (0-10) mg/dL - Radiology Data Radiology results reviewed: Yes I reviewed the patient's radiology results. Chest X-Ray 02/10/17 16:08 IMPRESSION: Increased opacification of the right upper lobe compatible with worsening malignancy D/ / Master Rodriguez MD / Master Rodriguez MD Interpreting Provider: Master Rodriguez MD Head CT 02/10/17 16:09 IMPRESSION: 1. Stable chronic atrophy and small vessel ischemic changes. 2. No acute intracranial hemorrhage or evidence of a mass. D/ / 02/10/2017 17:02:08 Jose York MD / dennys Interpreting Provider: Jose York MD - EKG Data EKG attestation: Yes I reviewed and interpreted this EKG. EKG results narrative: EKG demonstrates normal sinus rhythm with a rate of 80 bpm. Normal axis. Normal intervals. No ST-T wave changes. No ST elevations or depressions. No acute ischemic findings. No significant changes from previous EKG dated . TPA Checklist - LKW: 3-4.5 hrs Add. Contraindications Patient/family understanding: The patient/family members have been counseled and understood the risk, benefit , and alternatives of treatment. S.B.AEloy - Vineet Situation: Demographics, MOA Background: Presenting Complaint, Relevant PMH, Meds, & Allergies Assessment: Course and respsone to treatment, Exam Concerns, Patient/Family Expectation, Pertinant Lab Results, Outstanding Labs Recommendation: Barrier(s) to disposition, Recommendation based on pending studies, treatments, or consults S.BKamla Report Given to: Feliz Calloway Time: 18:22
[2017-02-10 16:53] LABS: Basophils % 0.8 %; Eosinophils # 0.4 K/mcL (0.0-0.6); Eosinophils % 8.5 %; Hemoglobin 11.9 g/dL (11.5-15.4); Immature Granulocytes % 0.2 % (0-4); Lymphocytes # 1.5 K/mcL (0.6-4.6); Lymphocytes % 31.1 %; Mean Corpuscular HGB Conc 31.3 g/dL (31.6-35.5); Mean Corpuscular Hemoglobin 25.5 pg (28.0-33.3); Mean Corpuscular Volume 81.4 fL (83.0-100.0); Mean Platelet Volume 9.3 fL (9.4-12.4); Monocytes # 0.3 K/mcL (0.0-1.3); Neutrophils # 2.5 K/mcL (1.6-8.9); Platelet Count 359 K/mcL (140-400); Red Blood Count 4.67 M/mcL (3.82-4.97); Red Cell Distribution Width 13.9 % (11.5-14.5); Segmented Neutrophils % 52.4 %
[2017-02-10 16:57] LABS: Bilirubin,Urine Small (Negative); Blood,Urine Negative (Negative); Clarity,Urine Clear (Clear); Color,Urine Yellow (Yellow); Glucose,Urine (UA) Normal (Normal); Ketones,Urine Negative (Negative); Leukocyte Esterase,Urine Negative (Negative); Nitrite,Urine Negative (Negative); PH,Urine 6.5 pH Units (5.0-8.0); Protein,Urine Negative (Neg-Trace); Specific Gravity,Urine 1.026 (1.010-1.025); Urobilinogen,Urine Normal (Normal)
[2017-02-10 17:07] LABS: Amphetamine Screen,Urine Negative ng/mL (Cutoff=1000); Barbiturate Screen,Urine Negative ng/mL (Cutoff=200); Benzodiazepines Screen,Urine Negative ng/mL (Cutoff=200); Cannabinoid Screen,Urine Negative ng/mL (Cutoff = 50); Cocaine Screen,Urine Negative ng/mL (Cutoff= 300); Opiate Screen,Urine Positive ng/mL (Cutoff=300); Phencyclidine Screen,Urine Negative ng/mL (Cutoff=25)
[2017-02-10 17:10] LABS: Alanine Aminotransferase 11 Units/L (0-55); Albumin 3.6 g/dL (3.5-5.0); Alkaline Phosphatase 111 Units/L (38-126); Aspartate Amino Transferase 15 Units/L (5-34); BUN/Creatinine Ratio 24 (6-26); Bilirubin,Direct 0.2 mg/dL (0.0-0.5); Bilirubin,Indirect 0.3 mg/dL (0.0-1.2); Bilirubin,Total 0.5 mg/dL (0.2-1.2); Blood Urea Nitrogen 16 mg/dL (7-20); Calcium 9.9 mg/dL (8.6-10.8); Carbon Dioxide 30 mEq/L (19-29); Chloride 102 mEq/L (98-109); Ethanol < 10 mg/dL (0-10); Globulin 3.7 g/dL (2.4-3.5); Glucose 96 mg/dL (70-99); Osmolality,Calculated 295 (280-300); Potassium 3.3 mEq/L (3.5-4.5); Sodium 142 mEq/L (136-145); Total Protein 7.3 g/dL (6.0-8.3); eGFR For African Americans > 60 (> 60); eGFR For Non-African Americans > 60 (> 60)
[2017-02-10 17:31] LABS: Thyroid Stimulating Hormone 1.481 mcIU/mL (0.350-4.840)
[2017-02-10] MEDS ORDERED: Naloxone 0.4 MG/ML INJ IVP PRN (20:44)
--- NOTE | 2017-02-10 20:51 | Internal Med History&Physical ---
<Nicole Piper - Last Filed: 02/10/17 20:54> Date of Encounter: 02/10/17 Time of Encounter: 20:50 Assessment and Plan (1) Acute encephalopathy Current visit: Yes Status: Acute with increased confusion and possible seizure activity per daughter. UA unremarkable. Head CT negative. Possibly secondary to metastasis, suspect underlying dementia as well. Hold on MRI, EEG as patient will not tolerate without sedation per Daughter. Oncology, neurology, positive care consult for further recommendations. (2) Lung cancer Current visit: No Status: Acute per hx. Has opted not to pursue treatment. Plan as noted above. Oncology consulted Qualifiers: Laterality: right Lung location: upper lobe of lung Qualified Code(s): C34.11 - Malignant neoplasm of upper lobe, right bronchus or lung (3) HTN (hypertension) Current visit: Yes Status: Chronic Uncontrolled with SBPs in 190s-200s. Home medications resumed, add PRN hydralazine. Monitor BP and titrate PRN Qualifiers: Hypertension type: essential hypertension Qualified Code(s): I10 - Essential (primary) hypertension (4) Hypokalemia Current visit: Yes Status: Acute K 3.3, replaced. Monitor repeat CMP (5) Do not resuscitate Current visit: Yes Status: Acute verified on admission. (6) DVT prophylaxis Current visit: Yes Status: Acute SCD Internal Medicine - H&P: HPI Admitted From: Long-term Nursing Facility Plans for Post Hospital Care: Transfer Group Home Care History of present illness: Ms. Aldridge is a 76 year old female lungs CTA, hypertension and suspected dementia who presented to [facility] on 02/10/17 from oncology office was concern for altered mental status status and disease progression. Daughter reports increased confusion/behavior issues and possible seizure-like activity. Unable to obtain ROS or subjective information due to altered mental status. Discussed with daughter and she is receptive to Palliative care consult Past Med Surg Social Fam HX - Past Medical History Medical history: cancer, COPD, hypertension Psychiatric history: no psych history - Past Surgical History Surgical History: cataract - Social History Smoking Status: Current every day smoker Smokeless Tobacco Status: No Alcohol use: none Drug use: none Internal Medicine - H&P: Meds Albuterol Sulfate [Albuterol Inhaler] 2 puff IH Q4H PRN 06/20/15 [History] Losartan [Cozaar] 25 mg PO DAILY 06/20/15 [History] Guaifenesin [Mucinex] 600 mg PO Q12H PRN 01/05/17 [History] Acetaminophen [Tylenol] 650 mg PO Q6H PRN 02/10/17 [History] Fluticasone/Vilanterol [Breo Ellipta 100-25 Mcg INH] 1 each IH DAILY 02/10/17 [ History] HYDROcodone/Acet 5/325 mg [Reese 5-325 mg] 1 tab PO Q6H 02/10/17 [History] Haloperidol 0.5 mg PO TID 02/10/17 [History] Lactose-Reduced Food [Ensure Plus] 1 bottle PO TID 02/10/17 [History] Melatonin 3 mg PO HS 02/10/17 [History] Polyethylene Glycol 3350 [Smoothlax] 17 gm PO DAILY 02/10/17 [History] Sennosides/Docusate Sodium [Senna Plus] 1 each PO BID 02/10/17 [History] hydrALAZINE [HydrALAZINE] 5 mg PO DAILY 02/10/17 [History] Allergies Amoxicillin Allergy (Verified 12/23/16 08:32) Difficulty Swallowing RASH ROS unobtainable: due to mental status All Systems PM: A 10-system review of systems was performed and is negative for pertinent findings except as documented above in the HPI. - Constitutional Vitals: Temp Pulse Resp BP Pulse Ox 98.2 F 72 17 185/73 94 02/10/17 20:47 02/10/17 20:47 02/10/17 20:47 02/10/17 20:47 02/10/17 20:47 General appearance: Present: cooperative, A&O X 1 - Head Head exam: Present: atraumatic, normocephalic - Eye Eye exam: Present: PERRL, conjuntiva pink, sclera anicteric Pupils: Present: PERRL - Neck Neck exam general surgery: Present: supple, trachea midline. Absent: lymphadenopathy - Respiratory Respiratory exam: Present: CTAB. Absent: accessory muscle use, rales, rhonchi, wheezes - Cardiovascular Cardiovascular exam: Present: RRR, +S1, +S2. Absent: diastolic murmur, gallop, rubs, systolic murmur - GI/Abdominal GI/Abdominal exam: Present: normal bowel sounds, soft, no peritoneal signs. Absent: distended, tenderness - Extremities Exam Extremities exam: Present: warm, radial pulses palpable and symetrical. Absent : calf tenderness, cyanotic, pedal edema - Neurological Exam Neurological exam: Present: CN II-XII intact, no focal deficits. Absent: oriented X3, pronater drift, facial droop, speech deficit - Skin Skin exam: Present: dry, intact Internal Med - H&P Results - Labs CBC & Chem 7: 02/10/17 16:42 02/10/17 16:42 <Brandon Villafana H - Last Filed: 02/10/17 22:00> Date of Encounter: 02/10/17 Internal Medicine - H&P: HPI History of present illness: Ms. Aldridge is a 76 year old female All Systems PM: A 10-system review of systems was performed and is negative for pertinent findings except as documented above in the HPI. - Constitutional Vitals: Temp Pulse Resp BP Pulse Ox 98.2 F 72 17 185/73 94 02/10/17 20:47 02/10/17 20:47 02/10/17 20:47 02/10/17 20:47 02/10/17 20:47 Internal Med - H&P Results - Labs CBC & Chem 7: 02/10/17 16:42 02/10/17 16:42 - Attending Attestation 1. Acute metabolic encephalopathy likely related to dementia versus metastatic disease The patient and the patient's daughter will not like to pursue any testing ( like MRI or PETscan) at the moment, the patient is very claustrophobic and because of her poor chances of recovering they will not pursue any treatment for cancer Palliative care consult 2. Hypokalemia, replete as needed 3. Accelerated hypertension, continue ARB and start hydralazine IV as needed 4. Lung cancer, followed by oncology as outpatient 5. COPD oxygen dependent, continue DuoNeb's and oxygen therapy 6. Tobacco use H and P to follow by RN NEW GRADUATE Nicole Piper Admit for observation. Time spent on this admission 40 minutes High risk for falling DNR cc arrest DNI I examined this patient and my medical decision-making was reviewed with the BUTTONHOLE MARKER/PA/Advanced Practice Nurse/Resident Physician. I agree with the documented findings, disposition and treatment plan as described except to the extent set forth below.
--- NOTE | 2017-02-10 20:55 | Event Note ---
Date of Encounter: 02/10/17 Time of Encounter: 20:52 1. Acute metabolic encephalopathy likely related to dementia versus metastatic disease The patient and the patient's daughter will not like to pursue any testing ( like MRI or PETscan) at the moment, the patient is very claustrophobic and because of her poor chances of recovering they will not pursue any treatment for cancer Palliative care consult 2. Hypokalemia, replete as needed 3. Accelerated hypertension, continue ARB and start hydralazine IV as needed 4. Lung cancer, followed by oncology as outpatient 5. COPD oxygen dependent, continue DuoNeb's and oxygen therapy 6. Tobacco use H and P to follow by CONTAMINATION CONSULTANT Nicole Piper Admit for observation. Time spent on this admission 40 minutes High risk for falling
[2017-02-10] MEDS: *HR* HYDROcodone/Acet 5/325 mg TABLET PO SCH (21:33)
[2017-02-10] MEDS: Potassium Chloride Elixir 20 MEQ/15 ML UDC PO SCH ×2 (21:34→21:49)
[2017-02-11] MEDS: *HR* HYDROcodone/Acet 5/325 mg TABLET PO SCH ×4 (03:18→21:08)
[2017-02-11 06:22] LABS: Basophils # 0.1 K/mcL (0.0-0.2); Basophils % 0.9 %; Eosinophils # 0.5 K/mcL (0.0-0.6); Eosinophils % 9.7 %; Hematocrit 31.3 % (35.3-44.9); Immature Granulocytes % 0.2 % (0-4); Lymphocytes # 1.4 K/mcL (0.6-4.6); Lymphocytes % 25.6 %; Mean Corpuscular HGB Conc 31.9 g/dL (31.6-35.5); Mean Corpuscular Hemoglobin 25.6 pg (28.0-33.3); Mean Corpuscular Volume 80.1 fL (83.0-100.0); Mean Platelet Volume 9.5 fL (9.4-12.4); Monocytes # 0.4 K/mcL (0.0-1.3); Monocytes % 7.3 %; Neutrophils # 3.1 K/mcL (1.6-8.9); Platelet Count 316 K/mcL (140-400); Red Blood Count 3.91 M/mcL (3.82-4.97); Red Cell Distribution Width 13.8 % (11.5-14.5); Segmented Neutrophils % 56.3 %
[2017-02-11 06:53] LABS: Alanine Aminotransferase 9 Units/L (0-55); Albumin 3.1 g/dL (3.5-5.0); Albumin/Globulin Ratio 1.1 (1.1-2.2); Alkaline Phosphatase 91 Units/L (38-126); Aspartate Amino Transferase 14 Units/L (5-34); BUN/Creatinine Ratio 19 (6-26); Bilirubin,Total 0.5 mg/dL (0.2-1.2); Blood Urea Nitrogen 11 mg/dL (7-20); Calcium 9.2 mg/dL (8.6-10.8); Carbon Dioxide 30 mEq/L (19-29); Chloride 104 mEq/L (98-109); Globulin 2.9 g/dL (2.4-3.5); Glucose 101 mg/dL (70-99); Osmolality,Calculated 296 (280-300); Potassium 2.9 mEq/L (3.5-4.5); Sodium 143 mEq/L (136-145); eGFR For African Americans > 60 (> 60); eGFR For Non-African Americans > 60 (> 60)
[2017-02-11] MEDS: Potassium Chloride Elixir 20 MEQ/15 ML UDC PO SCH ×2 (08:30→14:19)
[2017-02-11] MEDS: hydrALAZINE 10 MG TABLET PO SCH (08:30)
[2017-02-11] MEDS: (Fluticasone/Vilanterol [Breo Ellipta 100-25 Mcg Inh]) IH SCH (08:31)
[2017-02-11] MEDS ORDERED: hydrALAZINE 10 MG TABLET PO SCH (09:00)
--- NOTE | 2017-02-11 09:43 | Palliative - Consult Note ---
Date of Encounter: 02/11/17 Time of Encounter: 08:45 - Assessment and Plan (1) Agitation Current Visit: Yes Status: Acute Assessment and plan: Patient with history of agitation at [facility]. Daughter reports that patient takes Haldol for this. Patient with history of dementia and according to can become very violent and physical. At present, the patient is alert and calm. She verbalizes understanding of surroundings and is able to participate with limited ability in the conversation. Continue scheduled Haldol and patient has sitter at present. (2) Cancer associated pain Current Visit: No Status: Acute Assessment and plan: Patient with squamous cell lung cancer and history of breast cancer. Patient denies having any pain at present and and uses Vicodin for pain. Patient daughter Lisa Velarde # [phone] reports that Vicodin is scheduled at [facility] and patient can refuse it if she isn't having pain. Patient has required no pain medication since admission. Will continue to monitor. (3) Goals of care, counseling/discussion Current Visit: Yes Status: Acute Assessment and plan: Patient with squamous cell lung cancer and is being followed by Dr. Bates, Oncologist. Daughter reports that they were at office visit with her yesterday and patient had AMS and was sent to hospital for evaluation. The patient and family has decided to forgo any aggressive treatment or testing related to the patients lung cancer. The patient is currently residing at [facility] and according to has been able to participate in physical therapy there. I discussed that the patient certainly meets criteria for Hospice care as the patient doesn't desire any aggressive cancer treatment. states that her sister Shelly is willing to take the patient home with her to live. I discussed home Hospice care and the need to still have 24 hour care for the patient. Shelly is planning to come to visit and I provided my cell number for a meeting once she arrives. Current plan is to assess families ability to take patient home with hospice care. If this cannot happen now the patient will return to [facility]. The patient desires to go home and be with her family but also agrees to return to [facility] She reports that [facility] is a nice place. Will f/u with family and case discussed with NOHELIA Adams. (4) Lung cancer Current Visit: Yes Status: Chronic Assessment and plan: Patient desires no aggressive testing or treatment. Qualifiers: Laterality: right Lung location: upper lobe of lung Qualified Code(s): C34.11 - Malignant neoplasm of upper lobe, right bronchus or lung (5) COPD (chronic obstructive pulmonary disease) Current Visit: No Status: Chronic Qualifiers: COPD type: unspecified COPD Qualified Code(s): J44.9 - Chronic obstructive pulmonary disease, unspecified Palliative-CN HPI - Data of Consult Patient: known to practice within the last 3 years Consult date: 02/11/17 Requesting Physician: Nicole Piper Primary Care Provider: Riddhi Sosa CNP - Consult Narrative Palliative Care/Comfort Measures: Palliative care Reason for consult: Goals of Care History of present illness: Ms. Aldridge is a 76 year old female admitted with altered mental status. Patient is well known to the palliative care team. The patient has Squamous cell lung cancer and has refused palliative chemo/radiation based on an overall poor performance status. The patient was recently seen last January by the PC team and at that time the family desired for the patient to go to rehab to increase her strength. Upon this consult, the patient is lying in bed eating breakfast and her daughter is at bedside assisting. The patient is alert and calm, oriented to person only. The patient can follow simple commands and provide limited information related to her history and physical. This palliative care consult is for goals of planning. CC: Jimmy Fuentes Past Med Surg Social Fam HX - Past Medical History Source: patient (limited ability to provide health history), old records reviewed, obtained from family Medical history: cancer, COPD, hypertension Psychiatric history: no psych history - Past Surgical History Surgical History: breast surgery, cataract - Social History Smoking Status: Former smoker Smokeless Tobacco Status: No Alcohol use: none Drug use: none Occupational status: retired Current living situation: ECF Activity Level: Uses cane/walker, Mostly sedentary Recent Out of Country Travel Within the Last 8 Weeks: No Exposure or Possible Exposure to Illness During Travel: No - Family History Mother Living Status: Hx Family Cardiac Disorders: No Hx Family Respiratory Disorders: No Hx Family Cancer: Yes Hx Family GI Disorders: No Hx Family Genitourinary Disorders: No Hx Family Endocrine Disorder: No Hx Family Musculoskeletal Disorders: No Hx Family Neuromuscular Disorders: No Hx Family Neurologic Disorders: No Hx Family HEENT Disorders: No Hx Family Autoimmune Disorders: No Hx Family Reproductive Disorders: No Hx Family Psychosocial Disorders: No Hx Family Medical Disorders: No Medications and Allergies Albuterol Sulfate [Albuterol Inhaler] 2 puff IH Q4H PRN 06/20/15 [History] Losartan [Cozaar] 25 mg PO DAILY 06/20/15 [History] Guaifenesin [Mucinex] 600 mg PO Q12H PRN 01/05/17 [History] Acetaminophen [Tylenol] 650 mg PO Q6H PRN 02/10/17 [History] Fluticasone/Vilanterol [Breo Ellipta 100-25 Mcg INH] 1 each IH DAILY 02/10/17 [ History] HYDROcodone/Acet 5/325 mg [[place] 5-325 mg] 1 tab PO Q6H 02/10/17 [History] Haloperidol 0.5 mg PO TID 02/10/17 [History] Lactose-Reduced Food [Ensure Plus] 1 bottle PO TID 02/10/17 [History] Melatonin 3 mg PO HS 02/10/17 [History] Polyethylene Glycol 3350 [Smoothlax] 17 gm PO DAILY 02/10/17 [History] Sennosides/Docusate Sodium [Senna Plus] 1 each PO BID 02/10/17 [History] hydrALAZINE [HydrALAZINE] 5 mg PO DAILY 02/10/17 [History] Allergies Amoxicillin Allergy (Verified 12/23/16 08:32) Difficulty Swallowing RASH ROS unobtainable: due to mental status (limited due to mental status. Denies pain, N/V, ROTHMAN , or blurred vision ) - Constitutional Constitutional ROS PAL: fatigue, frequent falls - EENT Eyes: requires corrective lenses - Genitourinary Palliative ROS female: urinary incontinence - Musculoskeletal Musculoskeletal ROS IM: muscle weakness - Neurological Neurological ROS: confusion, weakness - Psychiatric Psychiatric general PM: difficulty concentrating Palliative Care-Exam - Constitutional Vitals: Temp Pulse Resp BP Pulse Ox 98.3 F 77 16 185/80 96 02/11/17 08:23 02/11/17 08:23 02/11/17 08:23 02/11/17 08:23 02/11/17 08:23 General appearance: Present: cooperative - Head Head Exam: Present: atraumatic, normal inspection, normocephalic - Eye Eye exam: Present: PERRL Pupils: Present: PERRL - ENT ENT exam: Present: mucous membranes moist - Neck Neck exam: Present: full ROM - Respiratory Respiratory exam: Present: decreased breath sounds, CTAB - Expanded Respiratory Exam Location: decreased breath sounds: Left, Right, Lower - Cardiovascular Cardiovascular exam: Present: RRR, +S1, +S2 - Expanded Cardiovascular Exam Peripheral pulses: 1+: Femoral (L) PM, Femoral (R) PM, Posterior Tibialis (L), Posterior Tibialis (R), 2+: Carotid (L) PM, Carotid (R) PM, Radial (L), Radial ( R), Dorsalis Pedis (L) PM, Dorsalis Pedis (R) PM - GI/Abdominal Exam GI/Abdominal exam: Present: normal bowel sounds, soft - Rectal Rectal exam: Present: deferred - Extremities Exam Extremities exam: Present: full ROM - Expanded Upper Extremities Exam Upper Arm exam: Present: full ROM Forearm wrist exam: Present: full ROM - Expanded Lower Extremities Exam Upper Leg exam: Present: full ROM Lower Leg exam: Present: full ROM - Neurological Exam Neurological exam: Present: alert Additional comments: Confused to place and time. Follows simple commands but unable to provide health history information. - Expanded Neurological Exam Patient oriented to: Present: person Cranial nerves: EOM's intact: Normal, gag reflex: Normal Cerebellar function: finger to nose: Normal, heel to zamarripa: Normal Neuro motor strength exam: LUE: 4, RUE: 4, LLE: 4, RLE: 4 Coma Scale Eye Opening: Spontaneous Coma Scale Motor Response: Obeys Commands Coma Scale Verbal Response: Confused Coma Scale Total: 14 - Psychiatric Psychiatric exam: Present: normal mood - Skin Skin exam: Present: pallor, warm Internal Medicine - CN: Reslt - Labs CBC & Chem 7: 02/11/17 05:47 02/11/17 05:47 Labs: Short CBC 02/11/17 Range/Units 05:47 WBC 5.5 (4.3-11.1) K/mcL Hgb 10.0 L D (11.5-15.4) g/dL Hct 31.3 L (35.3-44.9) % Plt Count 316 (140-400) K/mcL Neutrophils # 3.1 (1.6-8.9) K/mcL BMP 02/11/17 05:47 Sodium 143 Potassium 2.9 L Chloride 104 Carbon Dioxide 30 H BUN 11 Creatinine 0.59 Glucose 101 H Calcium 9.2 Liver Function 02/11/17 Range/Units 05:47 Total Bilirubin 0.5 (0.2-1.2) mg/dL AST 14 (5-34) Units/L ALT 9 (0-55) Units/L Alkaline Phosphatase 91 (38-126) Units/L Albumin 3.1 L (3.5-5.0) g/dL Consult Discharge Plan - Plan Referrals: Riddhi Sosa, NNP [Primary Care Provider] - Palliative Quality Palliative Quality: Screen for Code Status: Yes, Screen for Goals of Care: Yes, Screen for Pain: Yes, If Pain Regimen Started, Initiate Bowel Regimen: Yes, Screen for Nausea/Vomitting: Yes Code Status: 02/10/17 20:53 Resuscitation Status: Active [RES] Routine Comment: Resuscitation Status: [id number]
--- NOTE | 2017-02-11 11:08 | Event Note ---
Date of Encounter: 02/11/17 Time of Encounter: 10:00 Conducted bedside meeting with patient and daughters and Shelly. NOHELIA Adams also present. Discussed transitioning patient to home with [facility]. Shelly agrees to take patient home but needs time to prepare room at home. Shelly reports that room is full of furniture and will need a day to prepare it for durable medical equipment (DME). Shelly will prepare room at home and I contacted [facility] and spoke with Yvette. Home DME needs includes hospital bed, BS table, BSC, overlay mattress, and wheelchair with belt for safety. Provided contact information for Shelly and . [facility] # [phone] and . Contact given to Yvette and anticipate that room will be ready for DME tomorrow. Plan is for patient to be DC'd to home possibly tomorrow but anticipate Thursday morning as it will take time to get DME in home. [facility] will enroll patient prior to DC. Continue to work with family and assist as needed. Patient understands and agrees to POC. Family has plan for 24 hr care at home.
[2017-02-11] MEDS ORDERED: Magnesium Sulfate 2 GM in D5% in Water 100 ML IVPB ONE (13:19)
--- NOTE | 2017-02-11 13:22 | Internal Med Progress Note ---
Date of Encounter: 02/11/17 Time of Encounter: 10:00 - Assessment and plan (1) Acute encephalopathy Current Visit: Yes Status: Acute Assessment and plan: Possibly secondary to metastasis. Dementia component associated as well. Patient will transition to hospice care, will not do additional workup. (2) Altered mental status Current Visit: Yes Status: Acute Qualifiers: Coma depth: [place] coma 13-15 Qualified Code(s): R40.2410 - [place] coma scale score 13-15, unspecified time (3) DVT prophylaxis Current Visit: Yes Status: Acute (4) Goals of care, counseling/discussion Current Visit: Yes Status: Acute (5) Hypokalemia Current Visit: Yes Status: Acute Assessment and plan: Potassium and magnesium supplement today. Continue monitoring. (6) HTN (hypertension) Current Visit: Yes Status: Chronic Qualifiers: Hypertension type: essential hypertension Qualified Code(s): I10 - Essential (primary) hypertension (7) Lung cancer Current Visit: Yes Status: Chronic Assessment and plan: Patient and her family member not interested in receiving phototherapy for underlying malignancy. At this point the plan is to transition to hospice care. Possible discharge tomorrow or Thursday with plan for home hospice afterwards. Qualifiers: Laterality: right Lung location: upper lobe of lung Qualified Code(s): C34.11 - Malignant neoplasm of upper lobe, right bronchus or lung - Subjective Interval history: This is my first encounter with the patient. Afebrile. still confused, dsghter at bedside. Not in distress. - Constitutional Vitals: Temp Pulse Resp BP Pulse Ox 98.3 F 77 16 185/80 96 02/11/17 08:23 02/11/17 08:23 02/11/17 08:23 02/11/17 08:23 02/11/17 08:23 General appearance: Present: cooperative, A&O X 1 - Head Head exam: Present: atraumatic, normocephalic - Eye Eye exam: Present: PERRL, conjuntiva pink, sclera anicteric Pupils: Present: PERRL - Neck Neck exam general surgery: Present: supple, trachea midline. Absent: lymphadenopathy - Respiratory Respiratory exam: Present: CTAB. Absent: accessory muscle use, rales, rhonchi, wheezes - Cardiovascular Cardiovascular exam: Present: RRR, +S1, +S2. Absent: diastolic murmur, gallop, rubs, systolic murmur - GI/Abdominal GI/Abdominal exam: Present: normal bowel sounds, soft, no peritoneal signs. Absent: distended, tenderness - Extremities Exam Extremities exam: Present: warm, radial pulses palpable and symetrical. Absent : calf tenderness, cyanotic, pedal edema - Neurological Exam Neurological exam: Present: CN II-XII intact, oriented X3, no focal deficits. Absent: pronater drift, facial droop, speech deficit - Skin Skin exam: Present: dry, intact Internal Medicine: Result - Labs CBC & Chem 7: 02/11/17 05:47 02/11/17 05:47 Labs: Short CBC 02/11/17 Range/Units 05:47 WBC 5.5 (4.3-11.1) K/mcL Hgb 10.0 L D (11.5-15.4) g/dL Hct 31.3 L (35.3-44.9) % Plt Count 316 (140-400) K/mcL Neutrophils # 3.1 (1.6-8.9) K/mcL BMP 02/11/17 05:47 Sodium 143 Potassium 2.9 L Chloride 104 Carbon Dioxide 30 H BUN 11 Creatinine 0.59 Glucose 101 H Calcium 9.2 Liver Function 02/11/17 Range/Units 05:47 Total Bilirubin 0.5 (0.2-1.2) mg/dL AST 14 (5-34) Units/L ALT 9 (0-55) Units/L Alkaline Phosphatase 91 (38-126) Units/L Albumin 3.1 L (3.5-5.0) g/dL Consult Discharge Plan - Plan Referrals: Riddhi Sosa CNP [Primary Care Provider] -
--- NOTE | 2017-02-11 15:22 | Electrocardiograph Report ---
[address] [address] Test Date: 2017-02-10 Pat Name: Kiera Aldridge Department: 105 Room: 3B Gender: F Health Coordinator: : 1940 Requested By: Everton Israel Order Number: [id number] Reading MD: Lionel Thurston MD Measurements Intervals [place] Rate: 80 P: 36 IL: 141 QRS: 56 QRSD: 90 T: 50 QT: 371 QTc: 407 Interpretive Statements SINUS RHYTHM BASELINE ARTIFACT Electronically Signed On 02-11-2017 15:20:27 EDT by Lionel Thurston MD
--- NOTE | 2017-02-11 19:59 | Neurology - Consult Note ---
Date of Encounter: 02/11/17 Time of Encounter: 19:56 Assessment and Plan (1) Primary degenerative dementia of the Alzheimer type, senile onset Current Visit: Yes Status: Acute I strongly suggest that this patient's mental status changes are due to a primary underlying neurodegenerative process more likely Alzheimer's disease. Her level of consciousness is not altered, she is not encephalopathic. She is not hallucinating. I see no evidence of delirium. The CT scan of the brain reveals a tremendous amount of atrophy. Compensatory ventricular dilatation is common under this scenario, however this seems to be some bowing of the third ventricle which arouses suspicious for the possibility of normal pressure hydrocephalus. It is also not uncommon for individuals with significant dementia to develop epileptic seizures. Finally, although we cannot definitively rule out metastatic disease in a noncontrasted study, from a clinical perspective she does not appear to have any focal or lateralizing deficits, and because of mental status is so alert, I am doubtful of carcinomatosis. Because of family does not want any additional testing and comfort measures, I would suggest we consider Dilantin 300 mg by mouth daily. In this case that do not feel that a loading dose is necessary. I would simply started on 300 mg at bedtime and maintain this dose. Over a period of about a week or so she will reach a steady state. I will reevaluate her at your request. The documentation in the history of HPI and plan were at least partially created by [employer] voice recognition technology by Dr. Puri. Errors in grammar, wording or other phrases may exist. If errors are found after the documentation signed, they will be addressed individually in the addendum section of this document when appropriate. History of Present Illness HPI: Ms. Aldridge is a 76 year old female who is being seen for neurologic consultation secondary to mental status changes. She has a diagnosis of squamous cell lung cancer and she has declined chemotherapy treatment. Currently she resides in a detention and family members have identified concerned that she is having increased confusion and behavioral issues as well as occasional jerking-like activity that is suspicious for seizure. The family however does not want any aggressive measures taken and they have declined any additional testing. I did review the CT scan of the head without contrast which was completed on 02/10/2017. The study does reveal a significant amount of cortical atrophy. Also I cannot rule out normal pressure hydrocephalus. Since the scan is noncontrasted of course one cannot rule out metastatic lesions. However I see no hint of edema, or abnormalities along the langston-white interface. She denies headache. Past Med Surg Social Fam HX - Past Medical History Medical history: cancer, COPD, hypertension Psychiatric history: no psych history - Past Surgical History Surgical History: cataract - Social History Smoking Status: Current every day smoker Smokeless Tobacco Status: No Alcohol use: none Drug use: none - Family History Mother Living Status: Hx Family Cardiac Disorders: No Hx Family Respiratory Disorders: No Hx Family Cancer: Yes Hx Family GI Disorders: No Hx Family Genitourinary Disorders: No Hx Family Endocrine Disorder: No Hx Family Musculoskeletal Disorders: No Hx Family Neuromuscular Disorders: No Hx Family Neurologic Disorders: No Hx Family HEENT Disorders: No Hx Family Autoimmune Disorders: No Hx Family Reproductive Disorders: No Hx Family Psychosocial Disorders: No Hx Family Medical Disorders: No Medications and Allergies Albuterol Sulfate [Albuterol Inhaler] 2 puff IH Q4H PRN 06/20/15 [History] Losartan [Cozaar] 25 mg PO DAILY 06/20/15 [History] Guaifenesin [Mucinex] 600 mg PO Q12H PRN 01/05/17 [History] Acetaminophen [Tylenol] 650 mg PO Q6H PRN 02/10/17 [History] Fluticasone/Vilanterol [Breo Ellipta 100-25 Mcg INH] 1 each IH DAILY 02/10/17 [ History] HYDROcodone/Acet 5/325 mg [[place] 5-325 mg] 1 tab PO Q6H 02/10/17 [History] Haloperidol 0.5 mg PO TID 02/10/17 [History] Lactose-Reduced Food [Ensure Plus] 1 bottle PO TID 02/10/17 [History] Melatonin 3 mg PO HS 02/10/17 [History] Polyethylene Glycol 3350 [Smoothlax] 17 gm PO DAILY 02/10/17 [History] Sennosides/Docusate Sodium [Senna Plus] 1 each PO BID 02/10/17 [History] hydrALAZINE [HydrALAZINE] 5 mg PO DAILY 02/10/17 [History] Allergies Amoxicillin Allergy (Verified 12/23/16 08:32) Difficulty Swallowing RASH ROS unobtainable: due to mental status All Systems: A 10-system review of systems was performed and is negative for pertinent findings except as documented above in the HPI. Physical Examination - Vital Signs Vital Signs: Initial Vital Signs Temp Pulse Resp BP Pulse Ox 98.5 F 83 22 194/92 96 02/10/17 16:03 02/10/17 16:03 02/10/17 16:03 02/10/17 16:03 02/10/17 16:03 - Exam Exam: Mental status exam-she is awake alert and oriented to person. She knows that the month is February. She also knew that today is Thursday. However she speaks with loose association, and could not tell me specifically why she is in the hospital. She stated that "because I am sick". She does not appear to be in any discomfort. She is pleasantly confused. She is not somnolent or encephalopathic. She does have some motor apraxia. Cranial nerves-pupils are equal and reactive to light and accommodation, extraocular motility is intact, sensory to face is intact, mastication's intact. There is no facial asymmetry. Speech is fluent without dysarthria. Hearing is intact symmetrically. Soft palate elevates bilaterally upon phonation. Tongue protrudes midline. Cerebellar exam-there is no dysdiadochokinesis or dysmetria. She performed finger to nose and heel to zamarripa without ataxia. Motor exam finds no focal or lateralized deficits. She has good strength bulk and tone of the upper and lower extremities. I see no involuntary movements or atrophy at this time. Sensory exam-light touch and deep touch are globally intact. Deep tendon reflexes-2+/4 of the biceps, triceps, brachioradialis, and patella. There is no ankle clonus present. No Babinski. Results - Laboratory Findings CBC and BMP: 02/11/17 05:47 02/11/17 05:47 Abnormal lab findings: Abnormal lab results Hgb 10.0 g/dL (11.5-15.4) L D 02/11/17 05:47 Hct 31.3 % (35.3-44.9) L 02/11/17 05:47 MCV 80.1 fL (83.0-100.0) L 02/11/17 05:47 MCH 25.6 pg (28.0-33.3) L 02/11/17 05:47 Potassium 2.9 mEq/L (3.5-4.5) L 02/11/17 05:47 Carbon Dioxide 30 mEq/L (19-29) H 02/11/17 05:47 Glucose 101 mg/dL (70-99) H 02/11/17 05:47 Albumin 3.1 g/dL (3.5-5.0) L 02/11/17 05:47 Ur Specific [place] 1.026 (1.010-1.025) H 02/10/17 16:49 Urine Bilirubin Small (Negative) H 02/10/17 16:49 Urine Opiates Screen Positive ng/mL (Fyyerb=841) H 02/10/17 16:49 Consult Discharge Plan - Plan Referrals: Riddhi Sosa, [employer] [Primary Care Provider] -
[2017-02-12] MEDS: *HR* HYDROcodone/Acet 5/325 mg TABLET PO SCH ×4 (03:50→21:56)
[2017-02-12 05:50] LABS: Basophils # 0.1 K/mcL (0.0-0.2); Basophils % 0.9 %; Eosinophils # 0.6 K/mcL (0.0-0.6); Eosinophils % 9.3 %; Hematocrit 35.7 % (35.3-44.9); Hemoglobin 11.4 g/dL (11.5-15.4); Immature Granulocytes % 0.4 % (0-4); Lymphocytes # 1.8 K/mcL (0.6-4.6); Lymphocytes % 26.1 %; Mean Corpuscular HGB Conc 31.9 g/dL (31.6-35.5); Mean Corpuscular Volume 81.3 fL (83.0-100.0); Mean Platelet Volume 10.1 fL (9.4-12.4); Monocytes # 0.6 K/mcL (0.0-1.3); Monocytes % 8.2 %; Neutrophils # 3.7 K/mcL (1.6-8.9); Platelet Count 332 K/mcL (140-400); Red Blood Count 4.39 M/mcL (3.82-4.97); Red Cell Distribution Width 13.9 % (11.5-14.5); Segmented Neutrophils % 55.1 %
[2017-02-12 06:11] LABS: BUN/Creatinine Ratio 14 (6-26); Blood Urea Nitrogen 9 mg/dL (7-20); Calcium 9.2 mg/dL (8.6-10.8); Carbon Dioxide 31 mEq/L (19-29); Chloride 100 mEq/L (98-109); Glucose 102 mg/dL (70-99); Magnesium 2.2 mg/dL (1.6-2.6); Osmolality,Calculated 287 (280-300); Potassium 3.2 mEq/L (3.5-4.5); Sodium 139 mEq/L (136-145); eGFR For African Americans > 60 (> 60); eGFR For Non-African Americans > 60 (> 60)
[2017-02-12] MEDS: Potassium Chloride Elixir 20 MEQ/15 ML UDC PO SCH ×2 (08:55→15:45)
[2017-02-12] MEDS: hydrALAZINE 10 MG TABLET PO SCH (08:55)
[2017-02-12] MEDS: amLODIPine 5 MG TABLET PO SCH (08:55)
[2017-02-12] MEDS: (Fluticasone/Vilanterol [Breo Ellipta 100-25 Mcg Inh]) IH SCH (08:56)
--- NOTE | 2017-02-12 09:15 | Palliative Progress Note ---
Date of Encounter: 02/12/17 Time of Encounter: 08:35 - Assessment and plan (1) Agitation Current Visit: Yes Status: Acute Assessment and plan: The patient is on scheduled Haldol, also make Haldol on a when necessary basis available. Patient has sitter. Plan is for the patient to go home tomorrow with hospice. (2) Goals of care, counseling/discussion Current Visit: Yes Status: Acute Assessment and plan: Patient's CODE STATUS DNR CCA, DNI care patient will go home tomorrow with hospice today all the DME equipment will get set up at home. (3) Altered mental status Current Visit: Yes Status: Acute Assessment and plan: Patient is awake and alert and able to discuss things at this time. Patient does have periods of fusion and agitation. Please see above. Qualifiers: Coma depth: [place] coma 13-15 (4) Cancer associated pain Current Visit: No Status: Acute (5) Lung cancer Current Visit: Yes Status: Chronic Assessment and plan: The patient has opted for no further treatment for her lung cancer, this will be her hospice admitting diagnosis. Qualifiers: Laterality: right Lung location: upper lobe of lung Qualified Code(s): C34.11 - Malignant neoplasm of upper lobe, right bronchus or lung - Time Spent With Patient Total time spent is greater than 50% in coordination of care (as documented) at patient's floor/unit and/or counseling patient: - Subjective Interval history: Slow [place] per nursing staff. Initially the patient was asleep when I came in. For awakening when family arrived patient had no complaints of. - Constitutional Vitals: Abnormal lab results Hgb 11.4 g/dL (11.5-15.4) L 02/12/17 04:52 MCV 81.3 fL (83.0-100.0) L 02/12/17 04:52 MCH 26.0 pg (28.0-33.3) L 02/12/17 04:52 Potassium 3.2 mEq/L (3.5-4.5) L 02/12/17 04:52 Carbon Dioxide 31 mEq/L (19-29) H 02/12/17 04:52 Glucose 102 mg/dL (70-99) H 02/12/17 04:52 Albumin 3.1 g/dL (3.5-5.0) L 02/11/17 05:47 Ur Specific [place] 1.026 (1.010-1.025) H 02/10/17 16:49 Urine Bilirubin Small (Negative) H 02/10/17 16:49 Urine Opiates Screen Positive ng/mL ([id number]) H 02/10/17 16:49 General appearance: Present: no acute distress - Head Head exam: Present: atraumatic, normal inspection - Eye Eye exam: Present: normal appearance - ENT ENT exam: Present: mucous membranes moist - Respiratory Respiratory exam: Present: CTAB - Cardiovascular Cardiovascular exam: Present: RRR - GI/Abdominal GI/Abdominal exam: Present: normal bowel sounds, soft. Absent: tenderness - Extremities Exam Extremities exam: Present: normal inspection. Absent: pedal edema, tenderness - Neurological Exam Neurological exam: Present: alert - Psychiatric Psychiatric exam: Absent: agitated, anxious (No agitation at this time, however she was somewhat agitated last night.) - Skin Skin exam: Present: dry, warm Palliative Quality Palliative Quality: Screen for Code Status: Yes, Screen for Goals of Care: Yes, Screen for Pain: Yes, If Pain Regimen Started, Initiate Bowel Regimen: Yes, Screen for Nausea/Vomitting: Yes - Labs CBC & Chem 7: 02/12/17 04:52 02/12/17 04:52 Labs: Laboratory Results - last 24 hr 02/12/17 02/12/17 04:52 04:52 WBC 6.7 RBC 4.39 Hgb 11.4 L Hct 35.7 MCV 81.3 L MCH 26.0 L MCHC 31.9 RDW 13.9 Plt Count 332 MPV 10.1 Immature Gran % 0.4 Seg Neutrophils % 55.1 Lymphocytes % 26.1 Monocytes % 8.2 Eosinophils % 9.3 Basophils % 0.9 Neutrophils # 3.7 Lymphocytes # 1.8 Monocytes # 0.6 Eosinophils # 0.6 Basophils # 0.1 Sodium 139 Potassium 3.2 L Chloride 100 Carbon Dioxide 31 H BUN 9 Creatinine 0.64 Est GFR ( Amer) > 60 Est GFR (Non-Af Amer) > 60 BUN/Creatinine Ratio 14 Glucose 102 H Calculated Osmolality 287 Calcium 9.2 Magnesium 2.2 Consult Discharge Plan - Plan Referrals: Riddhi Sosa, MICK [Primary Care Provider] - Prescriptions: LORazepam Oral Conc [Ativan Oral Conc] 1 mg PO Q6HR #30 mls Haloperidol 0.5 mg PO TID #30 tablet Haloperidol Oral Conc [Haldol] 0.5 mg PO TID #30 mls HYDROcodone/Acet 5/325 mg [[place] 5-325 mg] 1 tab PO Q6H #20 tablet Morphine Oral CONC [Roxanol] 0.25 ml PO Q4H PRN #30 ml PRN Reason: pain or sob Phenytoin ER [Dilantin ER] 300 mg PO HS #5 capsule Polyethylene Glycol 3350 [Smoothlax] 17 gm PO DAILY 5 Days Sennosides/Docusate Sodium [Senna Plus] 1 each PO BID #10 tablet
--- NOTE | 2017-02-12 09:53 | Internal Med Progress Note ---
Date of Encounter: 02/12/17 Time of Encounter: 09:52 - Assessment and plan (1) Acute encephalopathy Current Visit: Yes Status: Acute Assessment and plan: Possibly secondary to metastasis. Dementia component associated as well. Patient will transition to hospice care, will not do additional workup. D/W hospice team, for discharge and transfer to hospice tomorrow (2) Altered mental status Current Visit: Yes Status: Acute Qualifiers: Coma depth: [place] coma 13-15 Qualified Code(s): R40.2410 - [place] coma scale score 13-15, unspecified time (3) DVT prophylaxis Current Visit: Yes Status: Acute (4) Goals of care, counseling/discussion Current Visit: Yes Status: Acute (5) Hypokalemia Current Visit: Yes Status: Acute Assessment and plan: Potassium supplement today. (6) HTN (hypertension) Current Visit: Yes Status: Chronic Qualifiers: Hypertension type: essential hypertension Qualified Code(s): I10 - Essential (primary) hypertension (7) Lung cancer Current Visit: Yes Status: Chronic Assessment and plan: Patient and her family member not interested in receiving further therapy for underlying malignancy. At this point the plan is to transition to hospice care. Plan is for discharge tomorrow with home hospice afterwards. Qualifiers: Laterality: right Lung location: upper lobe of lung Qualified Code(s): C34.11 - Malignant neoplasm of upper lobe, right bronchus or lung - Subjective Interval history: Afebrile, pleasantly confused. Not in distress. Denies headaches. - Constitutional Vitals: Temp Pulse Resp BP Pulse Ox 97.3 F L 69 16 202/78 96 02/12/17 04:02 02/12/17 04:02 02/12/17 04:02 02/12/17 04:02 02/12/17 04:02 General appearance: Present: cooperative, A&O X 2, pleasant, no acute distress - Head Head exam: Present: atraumatic, normocephalic - Eye Eye exam: Present: PERRL, conjuntiva pink, sclera anicteric Pupils: Present: PERRL - Neck Neck exam general surgery: Present: supple, trachea midline. Absent: lymphadenopathy - Respiratory Respiratory exam: Present: CTAB. Absent: accessory muscle use, rales, rhonchi, wheezes - Cardiovascular Cardiovascular exam: Present: RRR, +S1, +S2. Absent: diastolic murmur, gallop, rubs, systolic murmur - GI/Abdominal GI/Abdominal exam: Present: normal bowel sounds, soft, no peritoneal signs. Absent: distended, tenderness - Extremities Exam Extremities exam: Present: warm, radial pulses palpable and symetrical. Absent : calf tenderness, cyanotic, pedal edema - Neurological Exam Neurological exam: Present: CN II-XII intact, oriented X3, no focal deficits. Absent: pronater drift, facial droop, speech deficit - Skin Skin exam: Present: dry, intact Internal Medicine: Result - Labs CBC & Chem 7: 02/12/17 04:52 02/12/17 04:52 Labs: Short CBC 02/12/17 Range/Units 04:52 WBC 6.7 (4.3-11.1) K/mcL Hgb 11.4 L (11.5-15.4) g/dL Hct 35.7 (35.3-44.9) % Plt Count 332 (140-400) K/mcL Neutrophils # 3.7 (1.6-8.9) K/mcL BMP 02/12/17 04:52 Sodium 139 Potassium 3.2 L Chloride 100 Carbon Dioxide 31 H BUN 9 Creatinine 0.64 Glucose 102 H Calcium 9.2 Consult Discharge Plan - Plan Referrals: Riddhi Sosa, MICK [Primary Care Provider] - Prescriptions: Haloperidol 0.5 mg PO TID #30 tablet Haloperidol Oral Conc [Haldol] 0.5 mg PO TID #30 mls HYDROcodone/Acet 5/325 mg [[place] 5-325 mg] 1 tab PO Q6H #20 tablet LORazepam Oral Conc [Ativan Oral Conc] 1 mg PO Q6HR #30 mls Morphine Oral CONC [Roxanol] 0.25 ml PO Q4H PRN #30 ml PRN Reason: pain or sob Phenytoin ER [Dilantin ER] 300 mg PO HS #5 capsule Polyethylene Glycol 3350 [Smoothlax] 17 gm PO DAILY 5 Days Sennosides/Docusate Sodium [Senna Plus] 1 each PO BID #10 tablet
--- NOTE | 2017-02-12 14:49 | Event Note ---
Date of Encounter: 02/12/17 Time of Encounter: 14:47 Hospice medical lab director certification of terminal illness: Hospice benefit. Start: 02/13/2017 Hospice benefit. 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 In addition the patient has dementia which has markedly worsened in the last month, and this is has been estimated by multiple TIAs in the last month. She has not wish to have any further treatment done, and therefore I believe that These findings support a life expectancy of 6 months or less. I attest that I have compose the above narrative based on my review of the patient's medical records, and or on my examination of the patient. Lucio Martinez M.D. Associate medical voucher clerk. [facility]
[2017-02-13] MEDS: *HR* HYDROcodone/Acet 5/325 mg TABLET PO SCH ×2 (04:28→09:06)
[2017-02-13 06:49] VITALS: BP 137/60
--- NOTE | 2017-02-13 07:38 | Palliative Progress Note ---
Date of Encounter: 02/13/17 Time of Encounter: 07:00 - Assessment and plan (1) Agitation Current Visit: Yes Status: Acute Assessment and plan: Little to none this morning. Plan is for discharge to hospice today. (2) Goals of care, counseling/discussion Current Visit: Yes Status: Acute Assessment and plan: DNR CCA, DNI plan is for hospice today. (3) Altered mental status Current Visit: Yes Status: Acute Assessment and plan: Patient is awake and alert and able to discuss things at this time. Patient does have periods of fusion and agitation. Qualifiers: Coma depth: [place] coma 13-15 Qualified Code(s): R40.2410 - [place] coma scale score 13-15, unspecified time (4) Cancer associated pain Current Visit: No Status: Acute Assessment and plan: At this time she is requiring very little of her medication. She is comfortable. (5) Lung cancer Current Visit: Yes Status: Chronic Assessment and plan: The patient has opted for no further treatment for her lung cancer, this will be her hospice admitting diagnosis. Qualifiers: Laterality: right Lung location: upper lobe of lung Qualified Code(s): C34.11 - Malignant neoplasm of upper lobe, right bronchus or lung - Time Spent With Patient Total time spent is greater than 50% in coordination of care (as documented) at patient's floor/unit and/or counseling patient: - Subjective Interval history: The patient was awake and alert when I came in the room he likes to hang her legs over the edge of the bed. No complaints of an is ready to go home. Plan is for discharge to hospice today. - Constitutional Vitals: Abnormal lab results Hgb 11.4 g/dL (11.5-15.4) L 02/12/17 04:52 MCV 81.3 fL (83.0-100.0) L 02/12/17 04:52 MCH 26.0 pg (28.0-33.3) L 02/12/17 04:52 Potassium 3.2 mEq/L (3.5-4.5) L 02/12/17 04:52 Carbon Dioxide 31 mEq/L (19-29) H 02/12/17 04:52 Glucose 102 mg/dL (70-99) H 02/12/17 04:52 Albumin 3.1 g/dL (3.5-5.0) L 02/11/17 05:47 Ur Specific [place] 1.026 (1.010-1.025) H 02/10/17 16:49 Urine Bilirubin Small (Negative) H 02/10/17 16:49 Urine Opiates Screen Positive ng/mL (Phxzgp=235) H 02/10/17 16:49 General appearance: Present: no acute distress - Head Head exam: Present: atraumatic, normal inspection - Eye Eye exam: Present: normal appearance - ENT ENT exam: Present: mucous membranes moist - Neck Neck exam: Present: normal inspection - Respiratory Respiratory exam: Present: decreased breath sounds - Cardiovascular Cardiovascular exam: Present: RRR - GI/Abdominal GI/Abdominal exam: Present: normal bowel sounds, soft. Absent: tenderness - Extremities Exam Extremities exam: Present: normal inspection. Absent: pedal edema, tenderness - Neurological Exam Neurological exam: Present: alert - Psychiatric Psychiatric exam: Absent: agitated, anxious - Skin Skin exam: Present: dry, warm Palliative Quality Palliative Quality: Screen for Code Status: Yes, Screen for Goals of Care: Yes, Screen for Pain: Yes, If Pain Regimen Started, Initiate Bowel Regimen: Yes, Screen for Nausea/Vomitting: Yes - Labs CBC & Chem 7: 02/12/17 04:52 02/12/17 04:52 Consult Discharge Plan - Plan Referrals: Riddhi Sosa CNP [Primary Care Provider] - Prescriptions: LORazepam Oral Conc [Ativan Oral Conc] 1 mg PO Q6HR #30 mls Haloperidol 0.5 mg PO TID #30 tablet Haloperidol Oral Conc [Haldol] 0.5 mg PO TID #30 mls HYDROcodone/Acet 5/325 mg [[place] 5-325 mg] 1 tab PO Q6H #20 tablet Morphine Oral CONC [Roxanol] 0.25 ml PO Q4H PRN #30 ml PRN Reason: pain or sob Phenytoin ER [Dilantin ER] 300 mg PO HS #5 capsule Polyethylene Glycol 3350 [Smoothlax] 17 gm PO DAILY 5 Days Sennosides/Docusate Sodium [Senna Plus] 1 each PO BID #10 tablet
--- NOTE | 2017-02-13 08:39 | Discharge Summary ---
Date of Encounter: 02/13/17 Time of Encounter: 08:37 - Discharge Diagnosis (1) Acute encephalopathy Priority: Primary Status: Acute (2) Altered mental status Priority: Secondary Status: Acute Qualifiers: Coma depth: [place] coma 13-15 Qualified Code(s): R40.2410 - [place] coma scale score 13-15, unspecified time (3) DVT prophylaxis Priority: Secondary Status: Acute (4) Goals of care, counseling/discussion Priority: Secondary Status: Acute (5) Hypokalemia Priority: Secondary Status: Acute (6) HTN (hypertension) Priority: Secondary Status: Chronic Qualifiers: Hypertension type: essential hypertension Qualified Code(s): I10 - Essential (primary) hypertension (7) Lung cancer Priority: Secondary Status: Chronic Qualifiers: Laterality: right Lung location: upper lobe of lung Qualified Code(s): C34.11 - Malignant neoplasm of upper lobe, right bronchus or lung - Discharge Medications Prescriptions: amLODIPine [Norvasc] 5 mg PO DAILY #30 tablet Haloperidol 0.5 mg PO TID #30 tablet Haloperidol Oral Conc [Haldol] 0.5 mg PO TID #30 mls HYDROcodone/Acet 5/325 mg [[place] 5-325 mg] 1 tab PO Q6H #20 tablet LORazepam Oral Conc [Ativan Oral Conc] 1 mg PO Q6HR #30 mls Morphine Oral CONC [Roxanol] 0.25 ml PO Q4H PRN #30 ml PRN Reason: pain or sob Phenytoin ER [Dilantin ER] 300 mg PO HS #5 capsule Polyethylene Glycol 3350 [Smoothlax] 17 gm PO DAILY 5 Days Sennosides/Docusate Sodium [Senna Plus] 1 each PO BID #10 tablet Home Medications: Albuterol Sulfate [Albuterol Inhaler] 2 puff IH Q4H PRN 06/20/15 [History] Losartan [Cozaar] 25 mg PO DAILY 06/20/15 [History] Guaifenesin [Mucinex] 600 mg PO Q12H PRN 01/05/17 [History] Acetaminophen [Tylenol] 650 mg PO Q6H PRN 02/10/17 [History] Fluticasone/Vilanterol [Breo Ellipta 100-25 Mcg INH] 1 each IH DAILY 02/10/17 [ History] HYDROcodone/Acet 5/325 mg [[place] 5-325 mg] 1 tab PO Q6H 02/10/17 [History] Lactose-Reduced Food [Ensure Plus] 1 bottle PO TID 02/10/17 [History] Melatonin 3 mg PO HS 02/10/17 [History] hydrALAZINE [HydrALAZINE] 5 mg PO DAILY 02/10/17 [History] HYDROcodone/Acet 5/325 mg [[place] 5-325 mg] 1 tab PO Q6H #20 tablet 02/12/17 [Rx] Haloperidol 0.5 mg PO TID #30 tablet 02/12/17 [Rx] Haloperidol Oral Conc [Haldol] 0.5 mg PO TID #30 mls 02/12/17 [Rx] LORazepam Oral Conc [Ativan Oral Conc] 1 mg PO Q6HR #30 mls 02/12/17 [Rx] Morphine Oral CONC [Roxanol] 0.25 ml PO Q4H PRN #30 ml 02/12/17 [Rx] Phenytoin ER [Dilantin ER] 300 mg PO HS #5 capsule 02/12/17 [Rx] Polyethylene Glycol 3350 [Smoothlax] 17 gm PO DAILY 5 Days 02/12/17 [Rx] Sennosides/Docusate Sodium [Senna Plus] 1 each PO BID #10 tablet 02/12/17 [Rx] amLODIPine [Norvasc] 5 mg PO DAILY #30 tablet 02/13/17 [Rx] Allergies/Adverse Reactions: Allergies Amoxicillin Allergy (Verified 12/23/16 08:32) Difficulty Swallowing RASH Date of admission: 02/11/17 18:14 Primary care physician: Riddhi Sosa CNP Discharging clinician: Zac Arreaga Anticipated date of discharge: 02/13/17 - Patient Status Disposition: Hospice - Home Condition: Fair Functional capacity at discharge: bed bound Overall status at discharge: patient is progressing back to baseline - Discharge Instructions Follow Up With: Riddhi Sosa CNP [Primary Care Provider] - - Diet and Activity Activity: increase activity as tolerated Diet: advance to your usual diet Interval History: Ms. Aldridge is a 76 year old female lungs CTA, hypertension and suspected dementia who presented to [facility] on 02/10/17 from oncology office was concern for altered mental status status and disease progression. Daughter reports increased confusion/behavior issues and possible seizure-like activity. Unable to obtain ROS or subjective information due to altered mental status. Discussed with daughter and she is receptive to Palliative care consult Hospital course: Ms. Aldridge is a 76 year old female with history of lung cancer with metastatic disease. Admitted due to altered mental status. She was evaluated by the palliative care team, she was accepted into hospice services for further management. The patient's CODE STATUS is DNR comfort care arrest DO NOT INTUBATE. Plan was discussed in detail with the patient and her daughter. The patient has opted for no further treatment for her lung cancer, this will be her hospice admitting diagnosis. Will transition to [facility] care. - Time Spent with Patient Total time spent providing and/or coordinating discharge services: - Constitutional Vitals: Temp Pulse Resp BP Pulse Ox 97.3 F L 76 16 137/60 98 02/13/17 06:48 02/13/17 06:48 02/13/17 06:48 02/13/17 06:48 02/13/17 06:48 General appearance: Present: cooperative, A&O X 2, pleasant, no acute distress - Head Head exam: Present: atraumatic, normocephalic - Eye Eye exam: Present: PERRL, conjuntiva pink, sclera anicteric Pupils: Present: PERRL - Neck Neck exam general surgery: Present: supple, trachea midline. Absent: lymphadenopathy - Respiratory Respiratory exam: Present: CTAB. Absent: accessory muscle use, rales, rhonchi, wheezes - Cardiovascular Cardiovascular exam: Present: RRR, +S1, +S2. Absent: diastolic murmur, gallop, rubs, systolic murmur - GI/Abdominal GI/Abdominal exam: Present: normal bowel sounds, soft, no peritoneal signs. Absent: distended, tenderness - Extremities Exam Extremities exam: Present: warm, radial pulses palpable and symetrical. Absent : calf tenderness, cyanotic, pedal edema - Neurological Exam Neurological exam: Present: CN II-XII intact, oriented X3, no focal deficits. Absent: pronater drift, facial droop, speech deficit - Skin Skin exam: Present: dry, intact
--- NOTE | 2017-02-13 08:42 | Physician Discharge Referral ---
Home Health/Hosp Referral Info Transfer to: Hospice - Diagnosis (1) Acute encephalopathy Status: Acute (2) Altered mental status Status: Acute (3) DVT prophylaxis Status: Acute (4) Goals of care, counseling/discussion Status: Acute (5) Hypokalemia Status: Acute (6) HTN (hypertension) Status: Chronic (7) Lung cancer Priority: Primary Status: Chronic - Respiratory Orders Smoking Cessation: Smoking cessation has been advised. For more information, call the [place] Tobacco Quit Line at 4-950-PSET-NOW. - Diet/Nutrition Diet/Nutrition Orders: [facility] ([facility]) - Transfer Medications Prescriptions: amLODIPine [Norvasc] 5 mg PO DAILY #30 tablet Haloperidol 0.5 mg PO TID #30 tablet Haloperidol Oral Conc [Haldol] 0.5 mg PO TID #30 mls HYDROcodone/Acet 5/325 mg [[place] 5-325 mg] 1 tab PO Q6H #20 tablet LORazepam Oral Conc [Ativan Oral Conc] 1 mg PO Q6HR #30 mls Morphine Oral CONC [Roxanol] 0.25 ml PO Q4H PRN #30 ml PRN Reason: pain or sob Phenytoin ER [Dilantin ER] 300 mg PO HS #5 capsule Polyethylene Glycol 3350 [Smoothlax] 17 gm PO DAILY 5 Days Sennosides/Docusate Sodium [Senna Plus] 1 each PO BID #10 tablet Home Medications: Albuterol Sulfate [Albuterol Inhaler] 2 puff IH Q4H PRN 06/20/15 [History] Losartan [Cozaar] 25 mg PO DAILY 06/20/15 [History] Guaifenesin [Mucinex] 600 mg PO Q12H PRN 01/05/17 [History] Acetaminophen [Tylenol] 650 mg PO Q6H PRN 02/10/17 [History] Fluticasone/Vilanterol [Breo Ellipta 100-25 Mcg INH] 1 each IH DAILY 02/10/17 [ History] HYDROcodone/Acet 5/325 mg [[place] 5-325 mg] 1 tab PO Q6H 02/10/17 [History] Lactose-Reduced Food [Ensure Plus] 1 bottle PO TID 02/10/17 [History] Melatonin 3 mg PO HS 02/10/17 [History] hydrALAZINE [HydrALAZINE] 5 mg PO DAILY 02/10/17 [History] HYDROcodone/Acet 5/325 mg [[place] 5-325 mg] 1 tab PO Q6H #20 tablet 02/12/17 [Rx] Haloperidol 0.5 mg PO TID #30 tablet 02/12/17 [Rx] Haloperidol Oral Conc [Haldol] 0.5 mg PO TID #30 mls 02/12/17 [Rx] LORazepam Oral Conc [Ativan Oral Conc] 1 mg PO Q6HR #30 mls 02/12/17 [Rx] Morphine Oral CONC [Roxanol] 0.25 ml PO Q4H PRN #30 ml 02/12/17 [Rx] Phenytoin ER [Dilantin ER] 300 mg PO HS #5 capsule 02/12/17 [Rx] Polyethylene Glycol 3350 [Smoothlax] 17 gm PO DAILY 5 Days 02/12/17 [Rx] Sennosides/Docusate Sodium [Senna Plus] 1 each PO BID #10 tablet 02/12/17 [Rx] amLODIPine [Norvasc] 5 mg PO DAILY #30 tablet 02/13/17 [Rx] Allergies/Adverse Reactions: Allergies Amoxicillin Allergy (Verified 12/23/16 08:32) Difficulty Swallowing RASH Certification: Further, I certify that my clinical findings support that this patient is homebound (i.e. absences from home require considerable and taxing effort and are for medical reasons or yarsanism services or infrequently or short duration when for other reasons) because: Homebound Reason: Patient requires assistance of a person or device to safely leave home, Leaving home requires considerable and taxing effort due to condition Attestation: My signature below is to certify that this patient is under my care and that I, or nurse practitioner, or a physician's assistant director of residence life working with me, has a face-to -face encounter with this patient.
[2017-02-13] MEDS: amLODIPine 5 MG TABLET PO SCH (09:06)
[2017-02-13] MEDS: hydrALAZINE 10 MG TABLET PO SCH (09:06)
[2017-02-13] MEDS: (Fluticasone/Vilanterol [Breo Ellipta 100-25 Mcg Inh]) IH SCH (09:09)
== END 2017-02-13 13:10 | disposition hospice, home (50) | DRG 71 ==
LOC: 3NENU 15:55 → EMEROO 15:55 → 3NENU 19:02 → 3BNU 02-11 07:24 → SUATTDRO 02-11 18:14
PROVIDERS: ADMIT Registered Nurse; ATTEND Internal Medicine